=== PATIENT | male | born 1965 | race Caucasian/White ===

== ENCOUNTER 2022-07-12 23:47 | Emergency (ER) | payer OTHER, SELFPAY ==
[2022-07-12 23:48] VITALS: BP 170/94; PULSE 122; RESP 19; TEMP 36.2; O2SAT 96; BMI 33.5
[2022-07-13] VITALS (9 sets, daily range): BP systolic 134–143; BP diastolic 74–105; PULSE 78–99; RESP 14–18; TEMP 36.4–36.7; O2SAT 94–98
--- NOTE | 2022-07-13 00:05 | EKG12_ITS ---
Test Reason : MEDICAL CLEARANCE Blood Pressure : / mmHG Vent. Rate : 097 BPM Atrial Rate : 097 BPM P-R Int : 158 ms QRS Dur : 086 ms QT Int : 352 ms P-R-T Axes : 064 024 037 degrees QTc Int : 447 ms Normal sinus rhythm Nonspecific ST abnormality Abnormal ECG Confirmed by RICK TODD, ANJALI ([id number]), supervising editor news reel DORA BURR ([id number]) on 07/16/2022 10:57:36 AM Referred By: Confirmed By:IAN CABRERA MD
--- NOTE | 2022-07-13 00:06 | EDS_ITS ---
HPI HPI - Psych History of Present Illness Chief Complaint: Suicidal Informant: patient and police/health program specialist Narrative Narrative: History is obtained from the patient. I also obtained important and necessary history from police officers who are familiar with this patient's events [facility] and brought him in [facility]. Patient states that his is not talking to him. She went down to [place] to visit her sister about 5 days ago. She will not talk to him on the phone. His son evidently said that he has been depressed and on the couch for 5 days. He felt he needed to get help. Patient states he has not eaten a lot in 5 days but is still able to eat and drink. His sleep has been poor. He has been anxious and depressed. He had thoughts of driving to [place] where his son is in his sophomore year. He was going to put a gun to his own head and shoot himself at [place]. His brother evidently convinced him to come back. The patient had driven from here to about the [facility] border. When the patient got back, the police did turn the lights on and ended up apprehending him. Patient has never had thoughts like this before. He has never had a psychiatric admission. He is on medicines for depression and has been on them for about 2 years. He is taking his medicines as prescribed and not taking extra or missing. Necessary independent history obtained from police officers. They verified the above story. They also state that the patient was threatening to shoot himself in the head. They state that he also asked them to shoot him. It took some time to talk him out and talk him down and they were very concerned that this patient might go through with his suicidal statements. The patient evidently was in possession of a loaded firearm in his vehicle. Patient has not had any physical complaints recently such as headaches, fevers chills nausea vomiting or trouble breathing. He does not feel ill. Although his heart rate is up. He has no chest pain or palpitations. No rashes. He does have a history of high blood pressure. [facility] Medical History Anxiety Depression Hypertension Home Medications lisinopril 10 mg tablet 20 mg PO DAILY 07/09/15 [History Last Taken 07/09/15] chlorthalidone 50 mg tablet 25 mg PO DAILY 05/26/16 [History Last Taken Unknown] hydrocodone-acetaminophen 5-325mg 5mg-325mg 1 - 2 tab PO Q4H PRN PRN Pain ##20 05/26/16 [Rx Last Taken Unknown] lorazepam 1 mg tablet 1 mg PO TID PRN Anxiety 05/26/16 [History Last Taken 05/26/16] metoprolol succinate 50 mg tablet,extended release 24 hr 50 mg PO DAILY 05/26/16 [History Last Taken Unknown] sertraline 100 mg tablet 100 mg PO BID 05/26/16 [History Last Taken Unknown] Allergy/AdvReac Type Severity Reaction Status Date / Time No Known Allergies Allergy Verified 05/26/16 03:10 Surgical History History of appendectomy Social History Smoking Status: Never smoker EXAM Physical Exam Narrative Exam Narrative: Patient is awake and alert. He is cooperative with me. He does openly tell me the story. He is not at all threatening. He does allow exam. He does look internally stimulated. He looks anxious. He has trouble sitting still. He has to keep moving his legs back and forth. He admits to thinking of putting a gun to his head and pulling the trigger. But he then states he wants to go to work in the morning because he just started a new job on the second of this month. I think this likely has added further stress to his life. I see no sign of head trauma. Mucous membranes are moist. No JVD. His heart is regular with a rate about 100 when I listened. No murmur gallop or rub. Abdomen is soft and nontender. I see no rashes. Patient does appear little bit internally stimulated and anxious at this time. Eye contact is moderate. But he does not seem at all confused. No acute psychosis. No indication of hallucinations. He is cooperative. Const Vital Signs: 07/12/22 23:48 07/13/22 00:48 Temperature 97.2 F L Temperature Source Temporal Pulse Rate 122 H Respiratory Rate 19 H 15 Blood Pressure 170/94 H Blood Pressure Mean 119 Pulse Ox 96 Oxygen Delivery Method Room Air MDM MDM MDM Narrative Medical decision making narrative: Patient CBC shows normal white count hemoglobin and platelets. Electrolytes show some mildly low potassium at 3.1. I will write for some oral potassium but this should correct with diet. Glucose was minimally up at 113. Alcohol was elevated to 47. Salicylates and Tylenol were negative. Talk screen was negative. At this point, patient has refused his EKG. We will attempt to get this but I think his heart rate was likely up due to agitation and stress. We are contacting and discussing the case with [facility]. It ends up that one of the phone calls he made to their crisis line he did admit to being suicidal. Therefore, [facility] had already pink slipped him there. We are going to discuss the case with them to see if they will accept the patient at this time or if they need further evaluation or work-up. At this point, I believe the patient is medically cleared for psychiatric evaluation and admission. I think he would benefit from and does need admission. Lab Data Attestation: I reviewed the patient's lab results. Labs: Laboratory Results - last 24 hr 07/13/22 07/13/22 07/13/22 00:15 00:15 00:15 WBC 7.3 RBC 4.49 L Hgb 13.3 Hct 38.2 L MCV 85.1 MCH 29.6 MCHC 34.8 RDW Std Deviation 43.6 RDW Coeff of Kanu 14.1 Plt Count 326 MPV 8.7 Immature Gran % (Auto) 0.400 Neut % (Auto) 53.9 Lymph % (Auto) 35.6 [place] % (Auto) 5.2 Eos % (Auto) 3.9 Baso % (Auto) 1.0 Absolute Neuts (auto) 3.9 Absolute Lymphs (auto) 2.59 Nucleated RBC % 0 Sodium 140 Potassium 3.1 L Chloride 103 Carbon Dioxide 24.0 Anion Gap 13 BUN 24 H Creatinine 1.21 Estim Creat Clear Calc 65.17 Est GFR (MDRD) Af Amer 79 Est GFR (MDRD) Non-Af 66 BUN/Creatinine Ratio 19.8 Glucose 113 H Calcium 9.3 Salicylates Urine Opiates Screen Urine Methadone Screen Acetaminophen Ur Barbiturates Screen Ur Phencyclidine Scrn Ur Amphetamines Screen MDMA (Ecstasy) Screen U Benzodiazepines Scrn Urine Cocaine Screen U Cannabinoids Screen Ur Drug Screen Comment Ethyl Alcohol 247.0 07/13/22 07/13/22 00:15 00:20 WBC RBC Hgb Hct MCV MCH MCHC RDW Std Deviation RDW Coeff of Kanu Plt Count MPV Immature Gran % (Auto) Neut % (Auto) Lymph % (Auto) Licking % (Auto) Eos % (Auto) Baso % (Auto) Absolute Neuts (auto) Absolute Lymphs (auto) Nucleated RBC % Sodium Potassium Chloride Carbon Dioxide Anion Gap BUN Creatinine Estim Creat Clear Calc Est GFR (MDRD) Af Amer Est GFR (MDRD) Non-Af BUN/Creatinine Ratio Glucose Calcium Salicylates < 1.7 L Urine Opiates Screen NEGATIVE Urine Methadone Screen NEGATIVE Acetaminophen < 2.0 L Ur Barbiturates Screen NEGATIVE Ur Phencyclidine Scrn NEGATIVE Ur Amphetamines Screen NEGATIVE MDMA (Ecstasy) Screen NEGATIVE U Benzodiazepines Scrn NEGATIVE Urine Cocaine Screen NEGATIVE U Cannabinoids Screen NEGATIVE Ur Drug Screen Comment Ethyl Alcohol Discharge Plan Triage Chief Complaint: Suicidal ED Provider: Kevin Tuttle Dx/Rx/DC Orders Clinical Impression: Suicidal ideation, Alcohol intoxication, Acute hypokalemia Prescriptions: No Action lisinopril 10 MG tablet 20 mg PO DAILY Label Comments: metoprolol succinate 50 MG tablet 50 mg PO DAILY sertraline 100 MG tablet 100 mg PO BID chlorthalidone 50 MG tablet 25 mg PO DAILY lorazepam 1 MG tablet 1 mg PO TID PRN (Reason: Anxiety) hydrocodone-acetaminophen 1 TABLET tablet 1 - 2 tab PO Q4H PRN PRN (Reason: Pain) Qty: 20 0RF Primary Care Provider: Care Physician,No Primary Referrals: [facility] Doctor,Out of [Non-Staff] - Disposition Disposition: Psychiatric Hospital or Unit
[2022-07-13 00:25] LABS: Absolute Lymphocyte Count 2.59 X10^3/uL (0.83-4.51); Absolute Neutrophil Count 3.9 X10^3/uL (2.0-7.7); Basophil# 0.07 X10^3/uL; Eosinophil# 0.28 X10^3/uL; Eosinophils% 3.9 % (0-5); Hematocrit 38.2 % (40-54); Hemoglobin 13.3 g/dL (13.0-16.5); Lymphocyte # 2.59 X10^3/ul (0.83-4.51); Lymphocyte % 35.6 % (19-41); Mean Corp Hgb Conc 34.8 g/dL (32-36); Mean Corpuscular Hgb 29.6 pg (27.0-32.0); Mean Corpuscular Volume 85.1 fL (80-94); Mean Platelet Vol. 8.7 fl (6.2-12.0); Monocyte# 0.38 X10^3/uL; Monocyte% 5.2 % (0-10); NRBC Flagged by Analyzer 0 % (0-5); Neutrophil # 3.92 X10^3/uL (2.7-7.7); Neutrophil % 53.9 % (47-70); Platelet Count 326 K/mm3 (150-450); RBC Distribution Width CV 14.1 % (11.6-14.6); RBC Distribution Width SD 43.6 fl (35.1-43.9); Red Blood Count 4.49 M/mm3 (4.6-6.2); White Blood Count 7.3 K/mm3 (4.4-11.0)
[2022-07-13 00:40] LABS: Anion Gap 13 (5-15); BUN 24 mg/dL (7-18); BUN/Creat Ratio 19.8 RATIO (10-20); Calcium,Total 9.3 mg/dL (8.5-10.1); Chloride 103 mmol/L (98-107); Creatinine, Serum 1.21 mg/dL (0.70-1.30); EST Glomerular Filtration Rate 66 mL/min (>60); Est Glom Filt Rate - Afr Amer 79 mL/min (>60); Estimated Creatinine Clearance 65.17 ml/min; Glucose 113 mg/dL (74-106); Potassium 3.1 mmol/L (3.5-5.1); Sodium Level 140 mmol/L (136-145)
[2022-07-13 00:52] LABS: Amphetamine Urine VISTA NEGATIVE (<1000 ng/mL); Barbiturate Urine VISTA NEGATIVE (< 200 ng/mL); Benzodiazepine Urine VISTA NEGATIVE (< 200 ng/mL); Cocaine Urine VISTA NEGATIVE (< 300 ng/mL); Ecstacy Urine VISTA NEGATIVE (< 500 ng/mL); Methadone Urine VISTA NEGATIVE (< 300 ng/mL); PCP Urine VISTA NEGATIVE (< 25 ng/mL); THC Urine VISTA NEGATIVE (< 50 ng/mL); Vista UDS pH Range 5
[2022-07-13 01:06] LABS: Acetaminophen (Tylenol) Level < 2.0 ug/mL (10.0-30.0); Salicylate < 1.7 mg/dL (2.8-20.0)
--- NOTE | 2022-07-13 01:32 | ED.RN ---
[facility] CALLED FOR TRANSFER CHART FAXED TO THEM AT THIS TIME
[2022-07-13] MEDS: Gabapentin 300 MG Capsule 600 MG PO ×4 (02:29→23:09)
[2022-07-13] MEDS: Potassium Chloride Oral Tablet 20 MEQ 40 MEQ PO (02:29)
--- NOTE | 2022-07-13 09:10 | ED.RN ---
[facility]ED [facility], THEY SAID THEY ARE WAITING FOR US TO FAX A COVID PRC, EKG, AND BLOOD ALCOHOL RESULT TO [phone], THE NURSE ON THIS CASE IS JU
[2022-07-13] MEDS: Chlorthalidone 50 MG Tablet 25 MG PO (09:16)
[2022-07-13] MEDS: Lisinopril 20 MG Tablet PO (09:16)
[2022-07-13] MEDS: Levothyroxine 25 MCG TABLET PO (09:16)
[2022-07-13 09:51] LABS: Alcohol, Blood (Medical)-Serum < 3.0 mg/dL
--- NOTE | 2022-07-13 12:10 | CM.ED ---
Addendum entered by Jory Cohen 07/13/22 14:30: RANGEL called [facility] and spoke to Edwar at [phone] who stated that they had 5 beds for psych. Edwar stated that he will fax IN paperwork to the ED and then the paperwork will need to be sent to Alexa at [phone] ext [phone]. RANGEL faxed referral packet to [facility]. Jory CODY Addendum entered by Jory Cohen 07/13/22 12:12: RANGEL Note RANGEL called [facility] and after being referred to patient eligibility RANGEL was on the line for 11 minutes with no response. Jory CODY Original Note: RANGEL received voice mail message from [facility]. Brittny said that they spoke to the psychiatrist and there is currently no bed availability so they can not accept outside transfers. Jory CODY
--- NOTE | 2022-07-13 12:26 | ED.RN ---
[facility] DID NOT [facility]EPT (NOT TAKING OUTSIDE TRANSFERS), [facility] HAS A CALL TO A FACILITY IN [place].
--- NOTE | 2022-07-13 13:17 | CM.ED ---
Addendum entered by Arlene Lamb 07/13/22 17:39: RANGEL was contacted by [facility] staff, Luisa, explaining [facility] was [facility] with [facility], unit, and requested the pink slip be faxed to their location. RANGEL verified that [facility] was aware of patient's insurance, staff stated they are aware of his [facility] insurance and accept it. RANGEL contacted by Alexa with [facility] and reported [facility] were working on patient's acceptance and were communicating that with [facility] staff. RANGEL explained SW Jory was informed by [facility] they were not accepting outside patients at this time. SW explained patient was accepted to [facility]. RANGEL updated MD Perez of patient's acceptance to [facility]. RN updated. junior legal secretary to coordinate transportation. RANGEL met with patient to inform him of his acceptance to [place]. RANGEL explained [facility] staff were working on setting up transportation and would update him with a time. RANGEL provided patient with emotional support. Patient was receptive towards information and explained although he wants to go home, he will try to make the best of this experience. Plan: [facility] for crisis stabilization and medication management. CHIKIS Walker Addendum entered by Arlene Lamb 07/13/22 13:43: RANGEL contacted Alexa with [facility] to confirm they received referral for patient via fax, Alexa stated they did receive the referral and their staff would be reviewing it. CHIKIS Walker Addendum entered by Arlene Lamb 07/13/22 13:19: RANGEL updated MD Perez about [facility]. Correction: Patient was pink slipped [facility] outpatient provider [facility]. Referral sent to [facility]. Original Note: Social Work Psychiatric Assessment Reason for Consult: SI Informants: Patient, Ishan Chief Complaint: Patient reports he has been struggling with anxiety and depression over the past five days. Patient explained he has been struggling to get off the sofa and his drinking has increased in an attempt to ?get through the day?. Martial Status: Patient reports being to his for 33 years. Identified gender/ sexual orientation: male, heterosexual Living situation: Patient lives in a house with his and their son when their son is home from college. ?? Supports/ Resources: Patient explained he is supported by his Mom, his friend Braxton and sometimes his . ?? History: Patient reports being in the [place] for 4 ? years. Education and Employment history: Patient states he graduated from [employer], earned a Master?s degree in Electrical Engineering as well as Law Degree. 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 Mental Health Treatment/ History: Patient explained he saw a counselor for a few years to help him with sobriety while he attended AA meetings. Patient stated he stopped seeing that counselor about 5 years ago Patient currently receives outpatient services through the [facility]. Patient explained he is prescribed a daily anxiety medication as well as an as needed medication. Patient also participates in an online support group through the [facility] as needed. Patient reports history of anxiety and depression. Patient reports no previous psychiatric hospitalization and no family history of mental health. ?? Triggers/ stressors: Patient reports having a ?stressful life?, explaining his jobs have always been very stressful. Patient explained his main stressor recently has been not talking to his or son. Patient states it has caused his depression and anxiety to worsen fast. ? Coping Skills: Patient reports he enjoys watching watching ?silly things on tv?, spending time with his two cats and receiving hugs from his . Abuse History: ? Emotional: Patient explained he feels like his ignoring him recently is abusive and recalls his yelling at him when she drinks alcohol. ? Physical: none reported ? Sexual: none reported ? Substance Abuse Hx: Patient explained he started drinking while in the [place] and has struggled with sobriety since. Patient reports he stopped drinking over the summer but started drinking occasionally more recently. Patient reports over the past two weeks he has been drinking about 5 drinks a day, drink of choice is strong vodka mixed with juice or soda. Risk to Self/Others: ? Suicidal: Patient reports previous suicidal thoughts as well as a plan to drive to the [employer] and end his life [place]. Patient explained he knows he would change his mind before getting there due to the time it would take to get to the mountains. Patient reported noticing an increase in negative thoughts over the past two weeks and more the past five days. Patient reports he had his gun out and was thinking about ending his life, but decided to call the [facility] for support. He was encouraged to separate his gun from the ammunition and reports he did follow through with that. Patient then stated he had another plan to drive to his son?s campus and commit suicide on campus in front of his son. Patient explained he wanted to commit suicide in nature because it would be less messy than if he were in his home. Patient explained he drove to [facility] with a loaded gun but was encouraged to turn around and go home by his brother. Patient explained his intent to commit suicide that evening on a scale from 1-10 was a 10. Patient reports no current thoughts about suicide and feels he has accepted his current situation for what it is. Patient explained ?I don?t want to kill myself anymore, I am just hurting?. ? Homicidal: denied ? Violence: denied Mental Status Exam: ? Orientation x4 ? Memory: fair ? Appearance:? appropriate ? Mood/ affect: depressed mood, tearful ? Communication Pattern: responds to questions ? Thought Process: appropriate, denied AH/VH ? General Intellectual Functioning: average Judgement: poor Insight: poor? RANGEL consulted with MD Perez to discuss current concerns regarding safety. recommended inpatient psych as [facility] due to plan for suicide. ? Assessment: Patient was brought into the ED by police due to safety concerns. Patient reports an increase in depression and anxiety over the past week with those feelings continuing to increase as he hasn?t been in contact with his or son. Patient reports an increase in alcohol intake, decrease in sleeping as well as a decrease in appetite. Patient reports a history of suicidal thoughts and a previous plan. Patient states he had a plan last night to shoot himself in front of his son at his son?s college campus. Patient is currently [facility] the [facility] and participated in a [facility] group with the [facility]. Plan: Psychiatric Hospitalization for crisis stabilization and medication management Arlene STEIN, CHIKIS
--- NOTE | 2022-07-13 14:05 | CM.ED ---
Addendum entered by Lillian Cohen 07/13/22 16:46: RANGEL called back to the [facility]. [facility] Alexa said that her colleague was working on it. RANGEL was transferred to colleague but before this policy writer could be transferred it disconnected. RANGEL called Edwar at [facility] and he said that Alexa's colleague's phone and she leaves at 3pm. RANGEL left another message on the voice mail for Alexa. RANGEL spoke to Alexa again and noted that [facility] said that they were not accepting outside hospital transfers and Alexa said that is not what they told us. Of note, in the morning this policy writer had called psych at [facility] and spoke to staff who stated that they were aware of patient but were very busy and had lots of referrals from all over. RANGEL noted that as patient needs inpatient psych and he needs to be transferred to a facility SW determined to make a referral to [facility]. RANGEL had spoken to Riya at [facility] who stated they accept and VA benefits and then this policy writer spoke to [facility] head of UR and she confirmed that under the mission act patient has 30 days of inpatient treatment at a non [facility] hospital. SW made referral to [facility]. Due to patient's acuity and the fact that the [facility] has not voiced that they can accept him nor given us any statement except that they can't accept outside transfers and do what you need to do this worker decided to proceed with referral to [facility]. This was done to facilitate patient getting the mental health treatment he needed. New pink slip completed for patient. RANGEL Lane Management Supervisor Lillian CODY Addendum entered by Lillian Cohen 07/13/22 14:33: RANGEL called Alexa at [facility] in [place] and she said they reached out to [facility]. RANGEL advised that RANGEL had received call from [facility] stating that they had no psych beds. Alexa said that they will proceed with the review. lillian CODY Original Note: Brittny from [facility] called and stated there is no psych bed availability for patient. RANGEL asked about what to do with patient in regards to placement and the [place] Act and she said do whatever you need to do. Lillian CODY
--- NOTE | 2022-07-13 15:36 | ED.RN ---
Pt. states we are ok to speak and give updates to his mother. This RN updated mother we are waiting for placement.
--- NOTE | 2022-07-13 16:34 | ED.RN ---
[id number]
--- NOTE | 2022-07-13 17:11 | ED.RN ---
Attempted to call report to [facility]. left voicemail
--- NOTE | 2022-07-13 17:19 | ED.RN ---
Report given to Libby at [facility]
== END 2022-07-14 01:06 ==
PROVIDERS: Emergency Medicine; Emergency Provider Emergency Medicine; Visit Provider Emergency Medicine
DX: R45.851 Suicidal ideations (principal); F10.129 Alcohol abuse with intoxication, unspecified; E87.6 Hypokalemia; I10 Essential (primary) hypertension; Z79.899 Other long term (current) drug therapy
CPT/HCPCS: 80048; 80307; 80329; 82077; 85025; 87635; 87811; 93005; 99285; G0480; U0003; U0005

== ENCOUNTER 2023-11-03 11:14 | Emergency (ER) | payer OTHER, SELFPAY ==
[2023-11-03 11:15] VITALS: PULSE 89; RESP 14; TEMP 36.6; O2SAT 95
[2023-11-03 11:19] VITALS: BP 107/77
--- NOTE | 2023-11-03 11:30 | CT_ITS ---
STUDY: CT BRAIN WITHOUT CONTRAST REASON FOR EXAM: Male, 57 years old. Headache after a fall RADIATION DOSAGE (If Supplied By Facility): CTDIvol = ( 44.99 ) mGy, DLP = ( 880.47 ) mGycm TECHNIQUE: Transaxial CT imaging of the brain was performed without administration of intravenous contrast material. Individualized dose optimization techniques were used for this CT. COMPARISON: No relevant priors. FINDINGS: Normal soft tissue structures. Normal calvarium. Normal size ventricles and extra-axial spaces for the patient''s age. Normal white matter tracts of the cerebral hemispheres. Normal basal ganglia and thalami. Normal brainstem. Normal cerebellum. There is no intracranial hemorrhage. There are no findings of an acute ischemic infarction. Normal visualized paranasal sinuses. CT/Brain/Head without Contrast IMPRESSION: No acute findings, no hemorrhage or midline shift or mass effect, no skull fracture or scalp hematoma Electronically Signed: Anjel Farley MD at 12:07 EDT ,
--- NOTE | 2023-11-03 11:30 | CT_ITS ---
STUDY: CT CERVICAL SPINE WITHOUT CONTRAST REASON FOR EXAM: Male, 57 years old. Headache and neck pain after a fall RADIATION DOSAGE (If Supplied By Facility): CTDIvol = ( 23.78 ) mGy, DLP = ( 592.39 ) mGycm TECHNIQUE: High resolution transaxial imaging was performed without contrast material. Sagittal and coronal images were reconstructed. Individualized dose optimization techniques were used for this CT. COMPARISON: None FINDINGS: Normal craniovertebral junction. Normal anterior atlantoaxial articulation. Normal odontoid process. Normal cervical lordosis. Normal vertebral bodies and posterior osseous elements. C2-3: Normal endplates. Normal disc height and morphology. Normal central canal and intervertebral neuroforamina. C3-4: Normal endplates. Normal disc height and morphology. Normal central canal and intervertebral neuroforamina. C4-5: Normal endplates. Normal disc height and morphology. Normal central canal and intervertebral neuroforamina. C5-6: Normal endplates. Mild disc space narrowing.. Normal central canal and intervertebral neuroforamina. C6-7: Normal endplates. Mild disc space narrowing.. Normal central canal and intervertebral neuroforamina. C7-T1: Normal endplates. Mild disc space narrowing.. Normal central canal and intervertebral neuroforamina. Normal visualized soft tissue structures. CT/Spine Cervical without Contras IMPRESSION: Mild degenerative changes in the lower cervical spine, no demonstrated fracture or suspicious osseous lesion Electronically Signed: Anjel Farley MD at 12:09 EDT ,
--- NOTE | 2023-11-03 11:35 | EDS_ITS ---
HPI <CORA Nance - Last Filed: 11/03/23 13:20> History of Present Illness Chief Complaint: Head Injury Narrative Narrative: Patient presenting today due to head injury that occurred this morning. He reports that he drank about a third bottle of vodka and was at [facility] when he lost his balance and fell and hit the back of his head on an unknown object. There was no LOC, he is not on any blood thinners. He reports pain to the back of his head. He has a laceration to the back of his head, he reports that his tetanus is up-to-date. He denies any other injury. PFSH <CORA Nance - Last Filed: 11/03/23 13:20> [facility] Medical History Anxiety Depression Hypertension Home Medications lisinopril 10 mg tablet 20 mg PO DAILY 07/09/15 [History Last Taken 07/09/15] chlorthalidone 50 mg tablet 25 mg PO DAILY 05/26/16 [History Last Taken Unknown] hydrocodone-acetaminophen 5-325mg 5mg-325mg 1 - 2 tab PO Q4H PRN PRN Pain ##20 05/26/16 [Rx Last Taken Unknown] lorazepam 1 mg tablet 1 mg PO TID PRN Anxiety 05/26/16 [History Last Taken 05/26/16] metoprolol succinate 50 mg tablet,extended release 24 hr 50 mg PO DAILY 05/26/16 [History Last Taken Unknown] sertraline 100 mg tablet 100 mg PO BID 05/26/16 [History Last Taken Unknown] gabapentin 600 mg tablet 600 mg PO TID 07/13/22 [History Last Taken Unknown] levothyroxine 25 mcg tablet 25 mcg PO DAILY 07/13/22 [History Last Taken Unknown] Allergy/AdvReac Type Severity Reaction Status Date / Time No Known Allergies Allergy Verified 11/03/23 11:19 Surgical History History of appendectomy Social History Smoking Status: Never smoker ROS <CORA Nance - Last Filed: 11/03/23 13:20> ROS ED Constitutional Constitutional ED: Denies chills or fever(s) Eyes Eyes: Denies change in vision Cardiovascular Cardiovascular: Denies chest pain Respiratory/Chest Respiratory/Chest: Denies cough or dyspnea Gastrointestinal Gastrointestinal: Denies abdominal pain, nausea or vomiting Musculoskeletal Musculoskeletal: Denies arthralgias, back pain or neck pain Integumentary Reports laceration Neurologic Neurologic: Reports headache(s); Denies weakness Psychiatric Psychiatric: Reports anxiety and depression; Denies suicidal ideation or suicidal thoughts EXAM <CORA Nance - Last Filed: 11/03/23 13:20> Physical Exam Const Vital Signs: 11/03/23 11:15 11/03/23 11:19 11/03/23 11:18 Temperature 98 F Temperature Source Temporal Pulse Rate 89 Respiratory Rate 14 Respiratory Effort Normal Respiratory Depth Normal Respiratory Pattern Normal Blood Pressure 107/77 Blood Pressure Mean 87 Pulse Ox 95 Oxygen Delivery Method Room Air Room Air 11/03/23 13:16 Temperature 97.2 F L Temperature Source Pulse Rate 81 Respiratory Rate 18 Respiratory Effort Respiratory Depth Respiratory Pattern Blood Pressure 134/81 H Blood Pressure Mean 98 Pulse Ox 98 Oxygen Delivery Method Positive well nourished, well developed and no apparent distress General Appearance ED: well developed HEENT Reports normocephalic and head/scalp atraumatic HEENT Narrative: 3 cm full-thickness linear laceration to the posterior scalp Mouth ED: Yes moist mucous membranes normal Eyes PERRL and EOMs intact bilaterally Neck full ROM and supple Chest Wall inspection of chest normal Resp normal respiratory effort and clear to auscultation bilaterally Cardio regular rate and regular rhythm GI soft to palpation, non-tender, non-distended and no masses Back/Spine normal ROM and normal to inspection Extremity normal to inspection and full ROM Neuro oriented x3, CN's II-XII intact bilaterally, moves all extremities, no focal motor deficits and no sensory deficits noted Sensorium / Orientation: awake and alert Psych mental status grossly normal and thought process normal Skin no rashes or lesions noted Skin Narrative: 3 cm linear scalp laceration <Dr. Aman Cevallos DO - Last Filed: 11/03/23 14:25> Physical Exam Const Vital Signs: 11/03/23 11:15 11/03/23 11:19 11/03/23 11:18 Temperature 98 F Temperature Source Temporal Pulse Rate 89 Respiratory Rate 14 Respiratory Effort Normal Respiratory Depth Normal Respiratory Pattern Normal Blood Pressure 107/77 Blood Pressure Mean 87 Pulse Ox 95 Oxygen Delivery Method Room Air Room Air 11/03/23 13:16 Temperature 97.2 F L Temperature Source Pulse Rate 81 Respiratory Rate 18 Respiratory Effort Respiratory Depth Respiratory Pattern Blood Pressure 134/81 H Blood Pressure Mean 98 Pulse Ox 98 Oxygen Delivery Method PROC <CORA Nance - Last Filed: 11/03/23 13:20> Procedures Lacerations Laceration: Length: 1.18 in Depth: Sub Q Shape: Linear Prep: Chlorhexadine Laceration repair: Irrigated and Lidocaine with epi Number of Sutures/[place]: 5 Comment: Cleaned with normal saline and chlorhexidine, stapled with good approximation of wound. MDM <CORA Nance - Last Filed: 11/03/23 13:20> [facility] Narrative Medical decision making narrative: Patient presenting due to a head injury that occurred this morning. Patient is intoxicated, he is here with his mother. CT scan of the head and neck will be obtained to rule out intracranial bleed and cervical fracture. Laceration repaired he tolerated procedure well. Wound care instructions discussed. He is to have elias out in 10 to 14 days. He reports that his tetanus is up-to-date, I did offer tetanus here just to be sure but he declines. Head and neck CT negative for any acute findings. He was observed for period of time and is able to ambulate without difficulty, he has a sober ride home and will be discharged home in stable condition. Radiography Diagnostic Testing: Clinical Impression(s) from Imaging Studies Brain CT 11/03/23 11:30 IMPRESSION: No acute findings, no hemorrhage or midline shift or mass effect, no skull fracture or scalp hematoma Electronically Signed: Anjel Farley MD at 12:07 EDT , Cervical Spine CT 11/03/23 11:30 IMPRESSION: Mild degenerative changes in the lower cervical spine, no demonstrated fracture or suspicious osseous lesion Electronically Signed: Anjel Farley MD at 12:09 EDT , <Dr. Aman Cevallos, DO - Last Filed: 11/03/23 14:25> [facility] MDM Narrative Medical decision making narrative: Patient presenting due to a head injury that occurred this morning. Patient is intoxicated, he is here with his mother. CT scan of the head and neck will be obtained to rule out intracranial bleed and cervical fracture. Laceration repaired he tolerated procedure well. Wound care instructions discussed. He is to have elias out in 5?7. He reports that his tetanus is up-to-date, I did offer tetanus here just to be sure but he declines. Head and neck CT negative for any acute findings. He was observed for period of time and is able to ambulate without difficulty, he has a sober ride home and will be discharged home in stable condition. This patient was seen with a PA/BUDGET ANALYST Individually assessed they patient including history and physical. I have reviewed everything on the chart that is available and agree with the documentation provided by the PA/BUDGET ANALYST including discussion about the assessment, treatment plan, discussion, and return precautions. Patient presenting intoxicated had a mechanical fall at [facility]. He is a laceration to the scalp. CT brain and cervical spine were negative. Patient is sure that his tetanus is up-to-date. He was offered alcohol detox but he declines. He does acknowledge that he has a drinking problem but he is alert and awake and has capacity to make the decision. Elias placed by PA. Please see procedure note. Wound care and return precautions discussed. Radiography Diagnostic Testing: Clinical Impression(s) from Imaging Studies Brain CT 11/03/23 11:30 IMPRESSION: No acute findings, no hemorrhage or midline shift or mass effect, no skull fracture or scalp hematoma Electronically Signed: Anjel Farley MD at 12:07 EDT , Cervical Spine CT 11/03/23 11:30 IMPRESSION: Mild degenerative changes in the lower cervical spine, no demonstrated fracture or suspicious osseous lesion Electronically Signed: Anjel Farley MD at 12:09 EDT , Discharge Plan Triage Chief Complaint: Head Injury ED Midlevel Provider: [place] [place] ED Provider: Aman Cevallos Dx/Rx/DC Orders Clinical Impression: Alcohol intoxication, Head injury, Laceration of scalp Instructions: ED Head Injury (Adult), ED Laceration Scalp Stitches or [place] Prescriptions: No Action lisinopril 10 MG tablet 20 mg PO DAILY Patient Comments: metoprolol succinate 50 MG tablet 50 mg PO DAILY sertraline 100 MG tablet 100 mg PO BID chlorthalidone 50 MG tablet 25 mg PO DAILY lorazepam 1 MG tablet 1 mg PO TID PRN (Reason: Anxiety) hydrocodone-acetaminophen 1 TABLET tablet 1 - 2 tab PO Q4H PRN PRN (Reason: Pain) Qty: 20 0RF gabapentin 600 mg tablet 600 mg PO TID Patient Comments: TAKE 1 TABLET BY MOUTH THREE TIMES DAILY levothyroxine 25 mcg tablet 25 mcg PO DAILY Patient Comments: TAKE 1 TABLET BY MOUTH ONCE DAILY [facility] Care Provider: [facility] Referrals: Care Physician,No Primary [Non-Staff] - Activity Restrictions/Additional Instructions: Please have elias removed in 10 to 14 days by your PCP. Return for any worsening of your symptoms. Disposition Disposition: Home, Self Care Discharge Date/Time: 11/03/23 13:17
[2023-11-03 13:16] VITALS: BP 134/81; PULSE 81; RESP 18; TEMP 36.2; O2SAT 98
== END 2023-11-03 13:17 | disposition home or self-care (01) ==
PROVIDERS: Emergency Provider Student in an Organized Health Care Education/Training Program; Visit Provider Student in an Organized Health Care Education/Training Program
DX: F10.129 Alcohol abuse with intoxication, unspecified (principal); S01.01XA Laceration without foreign body of scalp, initial encounter; W19.XXXA Unspecified fall, initial encounter
CPT/HCPCS: 70450; 72125; 99282

== ENCOUNTER 2023-11-12 15:49 | Inpatient (IN) | payer OTHER, SELFPAY ==
[2023-11-12] VITALS (8 sets, daily range): BP systolic 107–164; BP diastolic 66–84; PULSE 54–75; RESP 14–18; TEMP 36.4–37.1; O2SAT 94–100; BMI 31.2; BMI 30.7
--- NOTE | 2023-11-12 16:01 | EX.ED.DYSGE1 ---
HPI History of Present Illness Chief Complaint: Seizure Informant: patient, family and friend Onset/Context/Timing Onset: Today Context: Sudden Onset Timing: Intermittent and Lasts (Approximately 10 minutes) Quality: Tonic-clonic Location: Generalized Worsened by: Nothing Relieved by: Nothing Narrative Narrative: Patient presents with a seizure that occurred today. Patient does not remember any events of the seizure. Patient was with a friend and his mother who witnessed the seizure. He stated that it was generalized shaking all over. They state that it lasted approximately 10 minutes. Patient denies any incontinence of urine or stool. Patient denies biting his tongue, lip, or cheek. Patient states he had a similar seizure approximately 9 days ago. Patient was not started on any antiepileptics at that time. [facility] Medical History Anxiety Depression Hypertension Home Medications lisinopril 10 mg tablet 20 mg PO DAILY 07/09/15 [History Last Taken 07/09/15] chlorthalidone 50 mg tablet 25 mg PO DAILY 05/26/16 [History Last Taken Unknown] hydrocodone-acetaminophen 5-325mg 5mg-325mg 1 - 2 tab PO Q4H PRN PRN Pain ##20 05/26/16 [Rx Last Taken Unknown] lorazepam 1 mg tablet 1 mg PO TID PRN Anxiety 05/26/16 [History Last Taken 05/26/16] metoprolol succinate 50 mg tablet,extended release 24 hr 50 mg PO DAILY 05/26/16 [History Last Taken Unknown] sertraline 100 mg tablet 100 mg PO BID 05/26/16 [History Last Taken Unknown] gabapentin 600 mg tablet 600 mg PO TID 07/13/22 [History Last Taken Unknown] levothyroxine 25 mcg tablet 25 mcg PO DAILY 07/13/22 [History Last Taken Unknown] Allergy/AdvReac Type Severity Reaction Status Date / Time No Known Allergies Allergy Verified 11/03/23 11:19 Surgical History History of appendectomy Social History Smoking Status: Never smoker ROS ROS ED Constitutional Constitutional ED: Denies chills or fever(s) Eyes Eyes: Denies blurry vision or change in vision ENT ENT ED: Denies rhinorrhea or sore throat Cardiovascular Cardiovascular: Denies chest pain or palpitations Respiratory/Chest Respiratory/Chest: Denies cough or dyspnea Gastrointestinal Gastrointestinal: Denies nausea or vomiting Genitourinary Genitourinary ED: Denies dysuria or hematuria Musculoskeletal Musculoskeletal: Denies back pain or neck pain Integumentary Denies abscess or rash Neurologic Neurologic: Denies headache(s) or weakness Allergic/Immunologic Allergic/Immunologic ED: Denies mouth swelling or urticaria EXAM Physical Exam Const Vital Signs: 11/12/23 15:53 11/12/23 16:38 11/12/23 18:03 Temperature 98.8 F Temperature Source Oral Pulse Rate 75 72 69 Respiratory Rate 16 16 16 Blood Pressure 124/84 H 107/66 164/75 H Blood Pressure Mean 97 79 104 Pulse Ox 98 94 99 Oxygen Delivery Method Room Air Room Air Non-Rebreather Oxygen Flow Rate (L/min) 11/12/23 18:39 11/12/23 20:00 Temperature 97.7 F L Temperature Source Temporal Pulse Rate 68 54 L Respiratory Rate 18 14 Blood Pressure 121/82 H 111/71 Blood Pressure Mean 95 84 Pulse Ox 100 97 Oxygen Delivery Method Nasal Cannula Room Air Oxygen Flow Rate (L/min) 2 Positive well nourished and well developed General Appearance ED: well developed and NAD HEENT Reports moist mucous membranes HEENT Narrative: There is a healing laceration over the right parietal/occipital scalp. There are [address] There is no surrounding erythema. There is no tenderness. There is no warmth. There is no discharge or drainage. There is no sign of any infection. Oral mucosa is pink and moist. There is no tongue laceration, lip laceration, or cheek laceration. There is no bleeding noted. Teeth are intact. Neck supple and no JVD Resp normal respiratory effort and clear to auscultation bilaterally Cardio regular rate and regular rhythm GI non-tender and non-distended Palpation: soft Extremity normal to inspection General Extremety ED: Negative for edema or tenderness General Extremity: Negative for edema Neuro oriented x3, CN's II-XII intact bilaterally and no sensory deficits noted Sensorium / Orientation: alert Motor Exam: strength 5/5 throughout MDM MDM MDM Narrative Medical decision making narrative: Differential diagnosis includes seizure, intracranial bleeding, intracranial mass, electrolyte abnormality, alcohol withdrawal seizure, and epilepsy. CT scan of the brain will be obtained to assess for intracranial bleeding and mass. CBC will be obtained to assess for leukocytosis and anemia. Comprehensive metabolic profile will be obtained to assess for hepatic function, renal function, and electrolyte abnormality. Urinalysis will be obtained to assess for urinary tract infection and hematuria. Serum alcohol level will be obtained to assess for alcohol intoxication. PT was INR and PTT will be obtained to assess for coagulopathy. Lab Data Attestation: I reviewed the patient's lab results. Lab results narrative: CBC was reviewed. There is a mild anemia with a hemoglobin of 12.0 and hematocrit 35.2. Platelets were normal. PT was INR and PTT were reviewed and were within normal limits. Comprehensive metabolic profile was reviewed. Potassium was low at 2.1. Creatinine was slightly elevated at 1.37. AST was slightly elevated at 183 and ALT was 62. Alkaline phosphatase was 191. Total bilirubin was normal at 0.7. Lipase was reviewed and was normal at 44. Urinalysis was reviewed. There is no evidence of urinary tract infection or hematuria. Serum alcohol level was reviewed and was less than 3. Labs: Laboratory Results - last 24 hr 11/12/23 11/12/23 17:00 17:50 WBC 9.7 RBC 4.34 L Hgb 12.0 L Hct 35.2 L MCV 81.1 MCH 27.6 MCHC 34.1 RDW Std Deviation 40.9 RDW Coeff of Kanu 14.0 Plt Count 209 MPV 9.3 Immature Gran % (Auto) 0.300 Neut % (Auto) 79.2 H Lymph % (Auto) 14.4 L [place] % (Auto) 5.5 Eos % (Auto) 0.2 Baso % (Auto) 0.4 Absolute Neuts (auto) 7.7 Absolute Lymphs (auto) 1.39 Nucleated RBC % 0 PT 14.2 INR 1.1 APTT 27.0 Sodium 137 Potassium 2.1 L* Chloride 101 Carbon Dioxide 27.0 Anion Gap 9 BUN 14 Creatinine 1.37 H Estim Creat Clear Calc 65.11 Est GFR (MDRD) Af Amer 68 Est GFR (MDRD) Non-Af 57 L BUN/Creatinine Ratio 10.2 Glucose 170 H Calcium 8.4 L Total Bilirubin 0.70 AST 183 H ALT 62 H Alkaline Phosphatase 191 H Total Protein 6.3 L Albumin 3.1 L Globulin 3.2 Albumin/Globulin Ratio 1.0 Lipase 44 Urine Color Yellow Urine Clarity Clear Urine pH 6.0 Ur Specific [place]rick 1.010 Urine Protein 30 H Urine Glucose (UA) Normal Urine Ketones Negative Urine Occult Blood 150 H Urine Nitrite Negative Urine Bilirubin Negative Urine Urobilinogen Normal Ur Leukocyte Esterase 25 H Urine RBC 5-10 SEEN Urine WBC 0 SEEN Ur Squamous Epith Cells 0 SEEN Urine Bacteria 0 SEEN Urine Mucus 0 SEEN Ethyl Alcohol < 3.0 Radiography Diagnostic Testing: Clinical Impression(s) from Imaging Studies Brain CT 11/12/23 16:41 IMPRESSION: Normal unenhanced CT scan of the brain. Electronically Signed: Buddy Ibarra MD at 17:41 EDT , CT scan of the brain was obtained. There is no acute intracranial abnormality. This was interpreted by the radiologist and was also independently reviewed by myself. Treatment and Re-Evaluation :: 5 pam were removed from the patient's scalp laceration without difficulty. Patient was given IV fluids. Seizure precautions were maintained. Patient did have another seizure here in the emergency department. It was a generalized tonic-clonic seizure. Because of this, patient was started on Keppra. Patient was given oral and IV potassium for his hypokalemia. Case was discussed with the hospitalist. He recommended obtaining a urine tox screen. This was ordered. He will admit the patient to PCU. Patient understands and is agreeable with the plan. All questions were answered. Procedures Other Procedures Procedure(s): 5 pam were removed from the scalp laceration. Patient tolerated the procedure well. Discharge Plan Triage Chief Complaint: Seizure ED Provider: Elder Connell Dx/Rx/DC Orders Clinical Impression: New onset seizure, Hypokalemia Prescriptions: No Action lisinopril 10 MG tablet 20 mg PO DAILY Patient Comments: metoprolol succinate 50 MG tablet 50 mg PO DAILY sertraline 100 MG tablet 100 mg PO BID chlorthalidone 50 MG tablet 25 mg PO DAILY lorazepam 1 MG tablet 1 mg PO TID PRN (Reason: Anxiety) hydrocodone-acetaminophen 1 TABLET tablet 1 - 2 tab PO Q4H PRN PRN (Reason: Pain) Qty: 20 0RF gabapentin 600 mg tablet 600 mg PO TID Patient Comments: TAKE 1 TABLET BY MOUTH THREE TIMES DAILY levothyroxine 25 mcg tablet 25 mcg PO DAILY Patient Comments: TAKE 1 TABLET BY MOUTH ONCE DAILY [facility] [Primary Care Provider] - Disposition Disposition: Acute Care Hospital [facility]
--- NOTE | 2023-11-12 16:41 | CT_ITS ---
STUDY: CT BRAIN WITHOUT CONTRAST REASON FOR EXAM: Male, 57 years old. Seizure RADIATION DOSAGE (If Supplied By Facility): CTDIvol = ( 44.99 ) mGy, DLP = ( 829.85 ) mGycm TECHNIQUE: Transaxial CT imaging of the brain was performed without administration of intravenous contrast material. Individualized dose optimization techniques were used for this CT. COMPARISON: 11/03/2023 FINDINGS: Normal soft tissue structures. Normal calvarium. Normal size ventricles and extra-axial spaces for the patient''s age. Normal white matter tracts of the cerebral hemispheres. Normal basal ganglia and thalami. Normal brainstem. Normal cerebellum. There is no intracranial hemorrhage. There are no findings of an acute ischemic infarction. Normal visualized paranasal sinuses. CT/Brain/Head without Contrast IMPRESSION: Normal unenhanced CT scan of the brain. Electronically Signed: Buddy Ibarra MD at 17:41 EDT ,
[2023-11-12] MEDS: 0.9% Normal Saline (1000mL) 1,000 ML 1000 ML IV (17:10)
[2023-11-12 17:14] LABS: Absolute Lymphocyte Count 1.39 X10^3/uL (0.83-4.51); Absolute Neutrophil Count 7.7 X10^3/uL (2.0-7.7); Basophil# 0.04 X10^3/uL; Basophil% 0.4 % (0-1); Eosinophil# 0.02 X10^3/uL; Eosinophils% 0.2 % (0-5); Hematocrit 35.2 % (40-54); Lymphocyte # 1.39 X10^3/ul (0.83-4.51); Lymphocyte % 14.4 % (19-41); Mean Corp Hgb Conc 34.1 g/dL (32-36); Mean Corpuscular Hgb 27.6 pg (27.0-32.0); Mean Corpuscular Volume 81.1 fL (80-94); Mean Platelet Vol. 9.3 fl (6.2-12.0); Monocyte# 0.53 X10^3/uL; Monocyte% 5.5 % (0-10); NRBC Flagged by Analyzer 0 % (0-5); Neutrophil # 7.66 X10^3/uL (2.7-7.7); Neutrophil % 79.2 % (47-70); Platelet Count 209 K/mm3 (150-450); RBC Distribution Width SD 40.9 fl (35.1-43.9); Red Blood Count 4.34 M/mm3 (4.6-6.2); White Blood Count 9.7 K/mm3 (4.4-11.0)
[2023-11-12 17:23] LABS: International Normalized Ratio 1.1; Prothrombin Time (Protime)PT. 14.2 SECONDS (11.7-14.9)
[2023-11-12 17:29] LABS: Alcohol, Blood (Medical)-Serum < 3.0 mg/dL
[2023-11-12 17:33] LABS: AST(SGOT) 183 U/L (15-37); Alanine Aminotransfer ALT/SGPT 62 U/L (16-61); Albumin, Serum 3.1 g/dL (3.2-5.0); Alkaline Phosphatase 191 U/L (45-117); Anion Gap 9 (5-15); BUN 14 mg/dL (7-18); BUN/Creat Ratio 10.2 RATIO (10-20); Calcium,Total 8.4 mg/dL (8.5-10.1); Chloride 101 mmol/L (98-107); Creatinine, Serum 1.37 mg/dL (0.70-1.30); EST Glomerular Filtration Rate 57 mL/min (>60); Est Glom Filt Rate - Afr Amer 68 mL/min (>60); Estimated Creatinine Clearance 65.11 ml/min; Globulin 3.2 g/dL (2.2-4.2); Glucose 170 mg/dL (74-106); Lipase 44 U/L (13-75); Potassium 2.1 mmol/L (3.5-5.1); Protein, Total 6.3 g/dL (6.4-8.2); Sodium Level 137 mmol/L (136-145)
[2023-11-12 17:55] LABS: Bacteria 0 SEEN /hpf (None Seen); Mucous, Urine 0 SEEN /hpf (<or=2+); Squamous Epithelial Cells - UA 0 SEEN /hpf (0-5); White Blood Cells 0 SEEN /hpf (0-5)
--- NOTE | 2023-11-12 18:00 | NURSING ---
Notified by family member of seizure activity. Upon entering room pt w/ snorous resp, lip smacking, twitching. O2 applied. KCL started. Dr. Connell at bedside for event.
[2023-11-12] MEDS: Potassium Chloride 10mEq/100mL 10 MEQ/100 ML IV.SOLN. 100 MEQ IV BOLUS ×2 (18:02→19:03)
[2023-11-12 18:06] LABS: Color, Urine Yellow (Yellow); Glucose, Dipstick Normal (Normal); Ketone-Dipstick Negative (Negative); Leukocyte Esterase-Dipstick 25 /ul (Negative); Nitrite-Dipstick Negative (Negative); Occult Blood-Urine 150 /ul (Negative); Protein-Dipstick 30 mg/dl (Negative); Urine Bilirubin Dipstick Negative (Negative); Urine Clarity Clear (Clear); Urine Urobilinogen Normal (Normal)
[2023-11-12] MEDS: levETIRAcetam IV 1,000 MG/100 ML BAG 400 MG IV (18:13)
[2023-11-12 18:19] LABS: Red Blood Cells-Urine 5-10 SEEN /hpf (0-5)
--- NOTE | 2023-11-12 21:38 | PCM.HP.STD ---
[facility] - General General Date of Admission: 11/12/23 Date of Service: 11/12/23 Chief Complaint: Tonic-clonic seizure. HPI Narrative DEREK PALACIOS, is a 57 M with a past medical history of essential hypertension, hypothyroidism, obesity; with BMI of 31.2 present on admission, chronic neuropathy of lower extremities; treated with gabapentin, history of seizure; attributed to alcohol withdrawal, depression with anxiety and chronic alcohol abuse; with patient drinking approximately 1/2 gallon of low test (20%) vodka daily since age 24 who presents to [facility] ER after witnessed tonic-clonic seizure. Mr. Palacios reports that his seizure occurred today but he does not remember any events of the seizure but he does admit his last drink was approximately 48 hours ago. His family reported to the ER that he was shaking all over and that it lasted approximately 10 minutes before resolving. There was no record of incontinence of urine or stool. Patient had no tongue lacerations, lip lacerations or buccal mucosa injury. He goes on to state that he had a similar seizure 9 days ago but was allegedly not started on any AEDs at that time with the patient have a healing laceration over the right parietal occipital scalp with [address] with no signs of infection. He denies associated fever, chills, nausea, vomiting, chest pain, shortness of breath, dysuria or headache but his family seem to indicate that he is still drinking and was not initially being completely forthright about his alcohol use. In the ER he was diagnosed with tonic-clonic seizure due to alcohol withdrawal that was empirically treated with IV Keppra complicated by laboratory evidence of critical hypokalemia of 2.1 mmol/L with an elevated AST to ALT ratio ~2:1 (AST 183 U/L and ALT 62 U/L) consistent with ongoing severe alcohol abuse precipitating recurrent alcohol withdrawal seizures with an undetectable blood alcohol concentration on admission. He was then admitted to the PCU for ongoing care for stay that is expected to be greater than 2 midnights. [facility] Medical History Anxiety Depression Hypertension Home Medications lisinopril 10 mg tablet 20 mg PO DAILY blood pressure 07/09/15 [History Last Taken 07/09/15] chlorthalidone 50 mg tablet 25 mg PO DAILY blood pressure 05/26/16 [History Last Taken Unknown] hydrocodone-acetaminophen 5-325mg 5mg-325mg 1 - 2 tab PO Q4H PRN PRN Pain ##20 05/26/16 [Rx Last Taken Unknown] lorazepam 1 mg tablet 1 mg PO TID PRN Anxiety 05/26/16 [History Last Taken 05/26/16] metoprolol succinate 50 mg tablet,extended release 24 hr 50 mg PO DAILY blood pressure 05/26/16 [History Last Taken Unknown] sertraline 100 mg tablet 100 mg PO BID mental health 05/26/16 [History Last Taken Unknown] gabapentin 600 mg tablet 600 mg PO TID neuropathy 07/13/22 [History Last Taken Unknown] levothyroxine 25 mcg tablet 25 mcg PO DAILY thyroid 07/13/22 [History Last Taken Unknown] Allergy/AdvReac Type Severity Reaction Status Date / Time No Known Allergies Allergy Verified 11/12/23 23:14 Surgical History History of appendectomy Social History Smoking Status: Never smoker ROS ROS Narrative Review of systems: General: Patient denies fever or chills. HENT: Denies headache, denies stuffy nose, denies sore throat EYES: Denies changes in vision or discharge from eyes. Resp: Denies cough, denies shortness of breath Cardiac: Denies chest pain, palpitations or heart racing. GI: Denies abdominal pain, denies changes in bowel, denies nausea or vomiting. : Denies changes in urination Extremity: Denies swelling Musculoskeletal: Feels somewhat generally weak and unwell but denies arthralgias or myalgias Neuro: Patient admits to tonic-clonic seizure as per HPI but he denies associated headache or focal neurologic weakness. Heme: Denies any bleeding or bruising Skin: Denies rashes Psychiatric: No complaints voiced related to uncontrolled depression or anxiety. Endocrine: No polyuria, polydipsia or polyphagia. The rest of the 14 point ROS was negative except for positives in HPI. Vital Signs Vital Signs Vital Signs: 11/12/23 15:53 11/12/23 16:38 11/12/23 18:03 Temperature 98.8 F Temperature Source Oral Pulse Rate 75 72 69 Respiratory Rate 16 16 16 Blood Pressure 124/84 H 107/66 164/75 H Blood Pressure Mean 97 79 104 Pulse Ox 98 94 99 Oxygen Delivery Method Room Air Room Air Non-Rebreather Oxygen Flow Rate (L/min) 11/12/23 18:39 11/12/23 20:00 Temperature 97.7 F L Temperature Source Temporal Pulse Rate 68 54 L Respiratory Rate 18 14 Blood Pressure 121/82 H 111/71 Blood Pressure Mean 95 84 Pulse Ox 100 97 Oxygen Delivery Method Nasal Cannula Room Air Oxygen Flow Rate (L/min) 2 Weight Weight: 205 lb 7.533 oz Body Mass Index (BMI) 31.2 Physical Exam Const alert, oriented x3, no apparent distress, average body habitus and healthy appearing General Appearance: cooperative HEENT normocephalic, hearing grossly normal bilaterally and moist oral mucous membranes HEENT Narrative: Patient has [address] over his right parietal occipital region with no signs of infection. Eyes PERRL and EOMs intact bilaterally Neck no lymphadenopathy and supple Resp normal respiratory effort, no retractions, no use of accessory muscles and clear to auscultation bilaterally Cardio regular rate and regular rhythm GI normal to inspection, nondistended, normoactive bowel sounds, soft to palpation, non-tender and non-distended Extremity normal to inspection, full ROM and no clubbing, cyanosis or edema Skin Skin Narrative: Patient has no evidence of jaundice, rash or abscess. Neuro oriented x3, CN's II-XII intact bilaterally, moves all extremities and no focal motor deficits Sensorium / Orientation: awake, alert, oriented to person, oriented to place and oriented to time Speech: speech normal Motor Exam: strength 5/5 throughout Psych affect normal Results Medical Records Data Attestation: I reviewed the patient's medical records Lab / Micro Data Attestation: I reviewed the patient's lab results. 11/12/23 17:00 11/12/23 17:00 Labs: Laboratory Results - last 24 hr 11/12/23 17:00: WBC 9.7, RBC 4.34 L, Hgb 12.0 L, Hct 35.2 L, MCV 81.1, MCH 27.6, MCHC 34.1, RDW Std Deviation 40.9, RDW Coeff of [place] 14.0, Plt Count 209, MPV 9.3, Immature Gran % (Auto) 0.300, Neut % (Auto) 79.2 H, Lymph % (Auto) 14.4 L, [place] % (Auto) 5.5, Eos % (Auto) 0.2, Baso % (Auto) 0.4, Absolute Neuts (auto) 7.7, Absolute Lymphs (auto) 1.39, Nucleated RBC % 0, PT 14.2, INR 1.1, APTT 27.0, Sodium 137, Potassium 2.1 L*, Chloride 101, Carbon Dioxide 27.0, Anion Gap 9, BUN 14, Creatinine 1.37 H, Estim Creat Clear Calc 65.11, Est GFR (MDRD) Af Amer 68, Est GFR (MDRD) Non-Af 57 L, BUN/Creatinine Ratio 10.2, Glucose 170 H, Calcium 8.4 L, Total Bilirubin 0.70, AST 183 H, ALT 62 H, Alkaline Phosphatase 191 H, Total Protein 6.3 L, Albumin 3.1 L, Globulin 3.2, Albumin/Globulin Ratio 1.0, Lipase 44, Ethyl Alcohol < 3.0 11/12/23 17:50: Urine Color Yellow, Urine Clarity Clear, Urine pH 6.0, Ur Specific [place] 1.010, Urine Protein 30 H, Urine Glucose (UA) Normal, Urine Ketones Negative, Urine Occult Blood 150 H, Urine Nitrite Negative, Urine Bilirubin Negative, Urine Urobilinogen Normal, Ur Leukocyte Esterase 25 H, Urine RBC 5-10 SEEN, Urine WBC 0 SEEN, Ur Squamous Epith Cells 0 SEEN, Urine Bacteria 0 SEEN, Urine Mucus 0 SEEN Imaging Radiology Impression Brain CT 11/12/23 16:41 IMPRESSION: Normal unenhanced CT scan of the brain. Electronically Signed: Buddy Ibarra MD at 17:41 EDT , Assessment & Plan Assessment/Plan (1) Tonic-clonic seizure: (2) Hypokalemia: (3) History of alcohol abuse: (4) History of seizure due to alcohol withdrawal: PLAN: Plan 1. Tonic-clonic seizure due to alcohol withdrawal in the setting of chronic severe alcohol abuse - Admit to PCU. Stop empiric IV Keppra and start phenobarbital taper. Give IV Ativan for breakthrough seizure activity. Alcohol cessation was strongly encouraged. Finally, we will consult [facility] teleneurology to see this patient this admission for further recommendations given his recurrent tonic-clonic seizures with help appreciated in advance. 2. Critical hypokalemia of 2.1 mmol/L present on admission complicating #1 - Give supplemental IV and p.o. KCl and then recheck level in a.m. to ensure improvement. 3. History of seizure; likely attributed to alcohol withdrawal previously in spite of gabapentin used to treat neuropathy - Noted. 4. Essential hypertension - Continue home regimen plus give as needed IV hydralazine for systolic blood pressure greater than 160 mmHg. 5. Hypothyroidism - Resume Synthroid and check TSH. 6. Obesity; with BMI of 31.2 present on admission - Weight loss will be recommended. 7. Depression with anxiety - Continue home regimen as previous. 8. DVT prophylaxis - Lovenox 40 mg sq daily. Total time: Approximately 55 minutes. Charges/Coding Visit Charges Inpatient E&M: 53291 Init Hosp L2
[2023-11-12 23:44] LABS: Magnesium 1.5 mg/dL (1.6-2.6); Phosphorus 1.1 mg/dL (2.5-4.9)
[2023-11-12] MEDS: Phenobarbital 32.4 MG Tablet 97.2 MG PO (23:44)
[2023-11-12] MEDS: Potassium Chloride Oral Tablet 20 MEQ 60 MEQ PO (23:44)
[2023-11-13] MEDS: traZODone 100 MG Tablet PO (00:20)
[2023-11-13] MEDS: Gabapentin 600 MG Tablet PO (00:20)
[2023-11-13] MEDS: MELATONIN 3 MG TABLET PO (00:20)
[2023-11-13] MEDS: 0.9% Saline Lock 10 ML Syringe IV ×2 (00:22→05:29)
[2023-11-13] MEDS: Potassium Phosphate 40 MM in 0.9% Normal Saline (500mL Bag) 500 ML 62.5 MM IV (00:56)
[2023-11-13 01:41] LABS: Amphetamine Urine VISTA NEGATIVE (<1000 ng/mL); Barbiturate Urine VISTA NEGATIVE (< 200 ng/mL); Benzodiazepine Urine VISTA POSITIVE (< 200 ng/mL); Cocaine Urine VISTA NEGATIVE (< 300 ng/mL); Ecstacy Urine VISTA NEGATIVE (< 500 ng/mL); Methadone Urine VISTA NEGATIVE (< 300 ng/mL); PCP Urine VISTA NEGATIVE (< 25 ng/mL); THC Urine VISTA NEGATIVE (< 50 ng/mL); Vista UDS pH Range 6
[2023-11-13 03:40] VITALS: BMI 30.7
[2023-11-13] MEDS: Magnesium Sulfate 2 GM in Dextrose 5%-Water (100mL Bag) 100 ML IV (04:12)
[2023-11-13 04:15] VITALS: BP 96/51; PULSE 52; RESP 15; TEMP 36.4; O2SAT 97
[2023-11-13] MEDS: Phenobarbital 32.4 MG Tablet 97.2 MG PO ×3 (04:42→11:35)
[2023-11-13] MEDS: Levothyroxine 25 MCG TABLET PO (04:42)
[2023-11-13] MEDS: KCL 20MEQ in 0.9% NS 20 MEQ/1,000 ML IV.SOLN. 125 MEQ IV (05:29)
[2023-11-13 07:03] VITALS: BP 91/56; PULSE 51; RESP 15; TEMP 36.3; O2SAT 97
[2023-11-13 07:23] LABS: Absolute Lymphocyte Count 2.16 X10^3/uL (0.83-4.51); Absolute Neutrophil Count 3.9 X10^3/uL (2.0-7.7); Basophil# 0.06 X10^3/uL; Basophil% 0.9 % (0-1); Eosinophil# 0.14 X10^3/uL; Eosinophils% 2.1 % (0-5); Hematocrit 29.5 % (40-54); Hemoglobin 9.7 g/dL (13.0-16.5); Lymphocyte # 2.16 X10^3/ul (0.83-4.51); Lymphocyte % 32.2 % (19-41); Mean Corp Hgb Conc 32.9 g/dL (32-36); Mean Corpuscular Hgb 26.9 pg (27.0-32.0); Mean Corpuscular Volume 81.7 fL (80-94); Mean Platelet Vol. 9.2 fl (6.2-12.0); Monocyte# 0.39 X10^3/uL; Monocyte% 5.8 % (0-10); NRBC Flagged by Analyzer 0 % (0-5); Neutrophil # 3.93 X10^3/uL (2.7-7.7); Neutrophil % 58.7 % (47-70); Platelet Count 165 K/mm3 (150-450); RBC Distribution Width CV 13.6 % (11.6-14.6); RBC Distribution Width SD 40.8 fl (35.1-43.9); Red Blood Count 3.61 M/mm3 (4.6-6.2); White Blood Count 6.7 K/mm3 (4.4-11.0)
[2023-11-13 07:50] VITALS: BP 94/52; PULSE 50; RESP 12; TEMP 36.6; O2SAT 100
[2023-11-13 08:11] LABS: AST(SGOT) 121 U/L (15-37); Alanine Aminotransfer ALT/SGPT 47 U/L (16-61); Albumin, Serum 2.5 g/dL (3.2-5.0); Alkaline Phosphatase 144 U/L (45-117); Anion Gap 5 (5-15); BUN 12 mg/dL (7-18); BUN/Creat Ratio 14.5 RATIO (10-20); Calcium,Total 7.4 mg/dL (8.5-10.1); Chloride 107 mmol/L (98-107); Creatinine, Serum 0.83 mg/dL (0.70-1.30); EST Glomerular Filtration Rate 101 mL/min (>60); Est Glom Filt Rate - Afr Amer 123 mL/min (>60); Estimated Creatinine Clearance 106.64 ml/min; Globulin 2.6 g/dL (2.2-4.2); Glucose 112 mg/dL (74-106); Potassium 2.4 mmol/L (3.5-5.1); Protein, Total 5.1 g/dL (6.4-8.2); Sodium Level 140 mmol/L (136-145); Thyroid Stim Hormone (TSH) 0.99 uIU/mL (0.358-3.74)
[2023-11-13] MEDS: Folic Acid 1 MG Tablet PO (08:24)
[2023-11-13] MEDS: Enoxaparin 40 MG/0.4 ML Syringe SC (08:24)
[2023-11-13] MEDS: Sertraline 100 MG Tablet PO (08:24)
[2023-11-13] MEDS: Thiamine Hydrochloride 100 MG Tablet PO (08:24)
[2023-11-13] MEDS: Potassium Chloride Oral Tablet 20 MEQ 40 MEQ PO (08:55)
[2023-11-13 08:56] VITALS: PULSE 50
[2023-11-13 09:27] LABS: Magnesium 2.2 mg/dL (1.6-2.6); Phosphorus 2.6 mg/dL (2.5-4.9)
--- NOTE | 2023-11-13 10:05 | CASEMGMT ---
RN?CM?MENTAL HEALTH CLINICIAN?CM?to room to meet with patient for initial transition planning/care coordination?assessment.?RN?CM?introduced self and role at [facility].? Pt voices understanding and consents to?assessment?at this time.? Pt resting in bed in no distress at this time. Pt's mother @ bedside and pt agreeable to her being present during assessment. ? Pt is A/O at this time and answers all questions appropriately.?? Care providers, pharmacy, and demographics verified/updated at this time. PCP: [place] Preferred Pharmacy: [facility] @ discharge. Insurance: [facility] only Prescription Benefit:? [facility] only Living Will/HPOA:?Pt does not currently have LW/HCPOA and declines info at this time.? Pt made aware that he can contact as an out-pt and make appt in the future if he decides he would like to talk with someone about this or would like to utilize [facility] social work for advanced directive completion.? LNOK: Pt states he is still legally , but is in the process of going through a divorce. Pt has a 21-yr-old son. Mother, Cristine Crane. Living Arrangements: Lives alone in 2-story home w/2 steps to enter. [employer]. Independent. Transportation:?Pt states drives self and states no transportation concerns at this time.?Mom will take him home @ discharge. DME: ? Denies using any DME and denies needs.? HHC/SNF: No hx of either. Denies needs and no needs identified. ETOH: Hx of ETOH abuse since the age of 24. Pt states he started drinking when he was in the [place]. Pt reports to this EDNA MONGE that he has been doing virtual counseling visits for ETOH addiction through the [place] and that he has not drank for 2 months and discreetly pointed towards his mother @ bedside, without her seeing him do this, indicating he did was not talking openly with this EDNA MONGE. Pt's mother then interjected and states she has concerns w/the info pt provided and states it is not accurate, stating she has seen him buy ETOH @ the store recently. Pt looked @ his mother and stated, It's ok, I'm handling it. EDNA MONGE offered ETOH resources but he declined, stating he has had a lot of education and does not need anything else. EDNA MONGE let pt know to ask for CM/SW if he changes his mind and would be open to any resources or wishes to talk with someone about this further. He voices understanding. RANGEL, Tiffany, made aware of above. Pt also states he is leaving today at noon No matter what and states he does not care if he is medically ready for discharge or not, that he is leaving. Dr Flores made aware. Pt wishes to return home and states has no concerns with going home at time of discharge.? CM?to follow for any further discharge planning/needs.? PLAN:??Home [facility] SAMUELN?RN?CM
--- NOTE | 2023-11-13 15:07 | PN.HOSP_ITS ---
Subjective Subjective With his mother out of the room, he admits that he has a drinking problem but refuses to continue with the alcohol withdrawal protocol here in the hospital. He says that he will pursue help through the [place]. He said that his first seizure was around 9 days ago and that was also during a period of abstinence from al cohol. He also says that this seizure that happened yesterday was on day 2 or 3 of abstinence from alcohol both of which are consistent with alcohol withdrawal seizures. Objective Data Objective Data Vital Signs: Vital Signs Temp Pulse Resp BP Pulse Ox O2 Del Method O2 Flow Rate 97.8 F 50 L 12 94/52 L 100 Room Air 2 11/13/23 07:50 11/13/23 08:56 11/13/23 07:50 11/13/23 07:50 11/13/23 07:50 11/13/23 07:50 11/12/23 18:39 Oxygen Flow Rate (L/min) 2 Oxygen Delivery Method Room Air Weight: 202 lb 2.622 oz Body Mass Index (BMI) 30.7 Intake & Output: Intake and Output for Last 24 Hours 11/12/23 11/13/23 11/14/23 03:59 03:59 03:59 Intake Total 1300 / 1339 910.5873 / 617.3333 Balance 1300 / 8560 565.4314 / 617.3333 Lab / Micro Data 11/13/23 07:10 11/13/23 07:10 Labs: Laboratory Results - last 24 hr 11/12/23 17:00: WBC 9.7, RBC 4.34 L, Hgb 12.0 L, Hct 35.2 L, MCV 81.1, MCH 27.6, MCHC 34.1, RDW Std Deviation 40.9, RDW Coeff of [place]u 14.0, Plt Count 209, MPV 9.3, Immature Gran % (Auto) 0.300, Neut % (Auto) 79.2 H, Lymph % (Auto) 14.4 L, [place] % (Auto) 5.5, Eos % (Auto) 0.2, Baso % (Auto) 0.4, Absolute Neuts (auto) 7.7, Absolute Lymphs (auto) 1.39, Nucleated RBC % 0, PT 14.2, INR 1.1, APTT 27.0, Sodium 137, Potassium 2.1 L*, Chloride 101, Carbon Dioxide 27.0, Anion Gap 9, BUN 14, Creatinine 1.37 H, Estim Creat Clear Calc 65.11, Est GFR (MDRD) Af Amer 68, Est GFR (MDRD) Non-Af 57 L, BUN/Creatinine Ratio 10.2, Glucose 170 H, Calcium 8.4 L, Phosphorus 1.1 L*, Magnesium 1.5 L, Total Bilirubin 0.70, AST 183 H, ALT 62 H, Alkaline Phosphatase 191 H, Total Protein 6.3 L, Albumin 3.1 L, Globulin 3.2, Albumin/Globulin Ratio 1.0, Lipase 44, Ethyl Alcohol < 3.0 11/12/23 17:50: Urine Color Yellow, Urine Clarity Clear, Urine pH 6.0, Ur Specific [place] 1.010, Urine Protein 30 H, Urine Glucose (UA) Normal, Urine Ketones Negative, Urine Occult Blood 150 H, Urine Nitrite Negative, Urine Bilirubin Negative, Urine Urobilinogen Normal, Ur Leukocyte Esterase 25 H, Urine RBC 5-10 SEEN, Urine WBC 0 SEEN, Ur Squamous Epith Cells 0 SEEN, Urine Bacteria 0 SEEN, Urine Mucus 0 SEEN 11/13/23 01:00: Urine Opiates Screen NEGATIVE, Urine Methadone Screen NEGATIVE, Ur Barbiturates Screen NEGATIVE, Ur Phencyclidine Scrn NEGATIVE, Ur Amphetamines Screen NEGATIVE, MDMA (Ecstasy) Screen NEGATIVE, U Benzodiazepines Scrn POSITIVE H, Urine Cocaine Screen NEGATIVE, U Cannabinoids Screen NEGATIVE, Ur Drug Screen Comment 11/13/23 07:10: WBC 6.7, RBC 3.61 L, Hgb 9.7 L, Hct 29.5 L, MCV 81.7, MCH 26.9 L , MCHC 32.9, RDW Std Deviation 40.8, RDW Coeff of [place] 13.6, Plt Count 165, MPV 9.2, Immature Gran % (Auto) 0.300, Neut % (Auto) 58.7, Lymph % (Auto) 32.2, [place] % (Auto) 5.8, Eos % (Auto) 2.1, Baso % (Auto) 0.9, Absolute Neuts (auto) 3.9, Absolute Lymphs (auto) 2.16, Nucleated RBC % 0, Sodium 140, Potassium 2.4 L*, Chloride 107, Carbon Dioxide 28.0, Anion Gap 5, BUN 12, Creatinine 0.83, Estim Creat Clear Calc 106.64, Est GFR (MDRD) Af Amer 123, Est GFR (MDRD) Non-Af 101, BUN/Creatinine Ratio 14.5, Glucose 112 H, Calcium 7.4 L, Phosphorus 2.6, Magnesium 2.2, Total Bilirubin 0.70, AST 121 H, ALT 47, Alkaline Phosphatase 144 H, Total Protein 5.1 L, Albumin 2.5 L, Globulin 2.6, Albumin/Globulin Ratio 1.0, TSH 0.99 Radiography Diagnostic Testing: Radiology Impression Brain CT 11/12/23 16:41 IMPRESSION: Normal unenhanced CT scan of the brain. Electronically Signed: Buddy Ibarra MD at 17:41 EDT , Physical Exam Narrative General: Alert, Oriented x3, Cooperative, No apparent distress HEENT: [place] in the right parietal occipital region of the scalp, PERRLA, EOMI, Normocephalic Oral: Moist Mucosa Neck: Supple, No JVD Lungs: Diminished, Normal air movement, No rhonchi, No wheeze, No rales Cardiovascular: Regular rate, Regular Rhythm, Normal S1, Normal S2, No murmurs Abdomen: Soft, Non Tender, Non-Distended, No Hepato-splenomegaly Extremities: No edema, Capillary Refill Less than 3 Seconds Skin: No rashes, No breakdown Musculoskeletal: No Tenderness to Palpation of Joints or Extremities Neurological: No focal neurological deficits, Motor Exam 5/5 strength throughout, Sensory exam intact to light touch and pain Psych/Mental Status: Normal Affect, Appropriate Assessment & Plan Assessment/Plan (1) Tonic-clonic seizure: (2) Hypokalemia: (3) History of alcohol abuse: (4) History of seizure due to alcohol withdrawal: PLAN: Plan 1. Alcohol withdrawal seizure/anxiety/depression ? Refuses to continue with the alcohol withdrawal protocol and he has requested to leave AMA ? I did ask that he stay at least until to see teleneurology at which point he says that he would give them until noon unfortunately they were unable to see him before then so he did leave AMA we did discuss the risks of leaving AGAINST MEDICAL ADVICE. ? I did prescribe Keppra on discharge and he did at least stay to have his electrolytes repleted which were significantly low with both magnesium and phosphorus and potassium needing to be repleted during his hospitalization ? He did state that he [facility] ? Also discharged on thiamine and folic acid 2. Essential HTN ? Can resume his home blood pressure medications 3. Hypothyroidism ? TSH is normal, can resume Synthroid DVT: Lovenox 50 minutes was spent discussing his care as well as documentation and treatment and discussing his AMA Charges/Coding Visit Charges Inpatient E&M: 12780 Subs Hosp L3
== END 2023-11-13 12:24 | disposition left against medical advice (07) | DRG 894 ==
LOC: ED 21:43 → PCU 22:13
PROVIDERS: Admitting Provider Internal Medicine; Emergency Provider Emergency Medicine; Visit Provider Family Medicine
DX: F10.130 Alcohol abuse with withdrawal, uncomplicated (principal); G40.89 Other seizures; E83.39 Other disorders of phosphorus metabolism; E03.9 Hypothyroidism, unspecified; I10 Essential (primary) hypertension; F32.A Depression, unspecified; F41.9 Anxiety disorder, unspecified; E87.6 Hypokalemia; G62.9 Polyneuropathy, unspecified; E83.42 Hypomagnesemia; E66.9 Obesity, unspecified; Z68.31 Body mass index [BMI] 31.0-31.9, adult; Y90.0 Blood alcohol level of less than 20 mg/100 ml; S01.01XD Laceration without foreign body of scalp, subsequent encounter; X58.XXXD Exposure to other specified factors, subsequent encounter; Z79.890 Hormone replacement therapy; Z79.899 Other long term (current) drug therapy
CPT/HCPCS: 36415; 70450; 80053; 80307; 80320; 81001; 83690; 83735; 84100; 84443; 85025; 85610; 85730; 99285; J7030; J7040; A4216; G0480

== ENCOUNTER 2024-04-03 09:09 | Emergency (ER) | payer OTHER, SELFPAY ==
[2024-04-03 09:15] VITALS: BP 104/55; PULSE 89; RESP 16; TEMP 36.8; O2SAT 93; BMI 30.9
--- NOTE | 2024-04-03 09:29 | CT_ITS ---
STUDY: CT BRAIN WITHOUT CONTRAST REASON FOR EXAM: Male, 58 years old. History of seizure. RADIATION DOSAGE (If Supplied By Facility): CTDIvol = ( 44.99 ) mGy, DLP = ( 829.85 ) mGycm TECHNIQUE: Transaxial CT imaging of the brain was performed without administration of intravenous contrast material. Individualized dose optimization techniques were used for this CT. COMPARISON: Comparison is made with prior study dated November 12, 2023. FINDINGS: Normal soft tissue structures. Normal calvarium. Normal size ventricles and extra-axial spaces for the patient''s age. Normal white matter tracts of the cerebral hemispheres. Normal basal ganglia and thalami. Normal brainstem. Normal cerebellum. There is no intracranial hemorrhage. There are no findings of an acute ischemic infarction. Normal visualized paranasal sinuses. Nasal septal deviation towards the right side of the midline. CT/Brain/Head without Contrast IMPRESSION: Normal unenhanced CT scan of the brain. Electronically Signed: Quentin Gore MD at 10:18 EDT ,
--- NOTE | 2024-04-03 09:30 | EX.ED.DYSGE1 ---
HPI History of Present Illness Chief Complaint: Seizure Informant: patient and EMS Narrative Narrative: 58-year-old male was sitting on a bench/chair waiting to see his booking police officer apparently felt funny and had a seizure. He woke up on the floor. Bit his lip and hit his head. Denies any pain or injury elsewhere. Denies having a headache right now or any other symptoms right now. He states seizures started 6-12 months ago, he had about 3 open prior to this but the [facility] they told him they did not think he needed them anymore and so he has been off of seizure medication for maybe 2 or 3 months. He thinks it may have been Keppra. He had an MRI and an EEG as an outpatient and after following up with neurology. [facility]. [facility] Medical History Seizures Hypertension Anxiety Depression Home Medications ?Medication ?Instructions ?Recorded ?Last Taken ?Type lisinopril 10 mg tablet 20 mg PO DAILY blood pressure 07/09/15 07/09/15 History lorazepam 1 mg tablet 1 mg PO TID PRN Anxiety 05/26/16 05/26/16 History metoprolol succinate 50 mg 50 mg PO DAILY blood pressure 05/26/16 Unknown History tablet,extended release 24 hr sertraline 100 mg tablet 100 mg PO BID mental health 05/26/16 Unknown History gabapentin 600 mg tablet 600 mg PO TID neuropathy 07/13/22 Unknown History levothyroxine 25 mcg tablet 25 mcg PO DAILY thyroid 07/13/22 Unknown History folic acid 1 mg tablet 1 mg PO DAILY@0800 30 days #30 tabs 11/13/23 Unknown Rx levetiracetam 500 mg tablet 500 mg PO BID #60 tabs 11/13/23 Unknown Rx (Keppra) thiamine HCl (vitamin B1) 100 mg 100 mg PO DAILYCM 30 days #30 tabs 11/13/23 Unknown Rx tablet (Vitamin B-1) levetiracetam 500 mg tablet 1,000 mg (2 x 500 mg) PO BID #120 04/03/24 Unknown Rx (Keppra) tabs Allergy/AdvReac Type Severity Reaction Status Date / Time No Known Allergies Allergy Verified 11/12/23 23:14 Surgical History History of appendectomy Social History Smoking Status: Never smoker ROS ROS ED Constitutional Constitutional ED: Denies chills or fever(s) Eyes Eyes: Denies change in vision or diplopia ENT ENT ED: Denies rhinorrhea or sore throat Cardiovascular Cardiovascular: Denies chest pain or palpitations Respiratory/Chest Respiratory/Chest: Denies cough or dyspnea Gastrointestinal Gastrointestinal: Denies abdominal pain, diarrhea, nausea or vomiting Genitourinary Genitourinary ED: Denies dysuria or hematuria Musculoskeletal Musculoskeletal: Denies back pain or neck pain Integumentary Reports Abrasions and laceration; Denies abscess or rash Neurologic Neurologic: Reports seizures; Denies headache(s), paresthesias or weakness Psychiatric Psychiatric: Denies anxiety or suicidal thoughts EXAM Physical Exam Const Vital Signs: 04/03/24 09:15 04/03/24 11:10 Temperature 98.2 F Temperature Source Oral Pulse Rate 89 73 Respiratory Rate 16 16 Blood Pressure 104/55 L 115/64 Blood Pressure Mean 71 81 Pulse Ox 93 98 Oxygen Delivery Method Room Air Room Air Positive well nourished and well developed General Appearance ED: well developed and NAD HEENT Reports moist mucous membranes HEENT Narrative: posterior top of scalp, 3 cm full-thickness linear laceration clean, no depression or crepitance. No other signs of head trauma. No Schmid sign. No raccoon eyes. No CSF otorhinorrhea or hemotympanum. normocephalic, trauma and tenderness Eyes PERRL and EOMs intact bilaterally Neck full ROM and supple Resp normal respiratory effort and clear to auscultation bilaterally Cardio regular rate, regular rhythm and no murmurs GI non-tender and non-distended Auscultation: normoactive bowel sounds Palpation: soft Back/Spine no CVA tenderness General Back: other FROM Extremity normal to inspection General Extremety ED: Negative for edema, pulses abnormal or tenderness General Extremity: Negative for edema or pulses abnormal Neuro oriented x3, CN's II-XII intact bilaterally and no sensory deficits noted Sensorium / Orientation: awake and alert Motor Exam: strength 5/5 throughout Psych mental status grossly normal Skin no rashes or lesions noted and no wounds Skin Narrative: Scalp laceration. Abrasions to the right side of the face without bony tenderness. MDM MDM MDM Narrative Medical decision making narrative: CT head obtained to rule out intracranial injury I reviewed the images and the report which I agree with, it is negative for any acute. Urinalysis no signs of infection. I do not think he needs lab work. He is doing well no seizure activity was given a gram of Keppra and going to give him a prescription for 1000 mg twice daily, and he will [facility]. He understands no driving. Of note, it was seen that the patient has a history of alcohol abuse and withdrawal. He states he is following with his veterans service officer, and has not had a drop of alcohol in months so he is not likely in acute withdrawal. His blood pressure supports that. Lab Data Attestation: I reviewed the patient's lab results. Labs: Laboratory Results - last 24 hr 04/03/24 10:00 Urine Color Yellow Urine Clarity Sl. Cloudy Urine pH 6.0 Ur Specific Bim 1.015 Urine Protein 30 H Urine Glucose (UA) Normal Urine Ketones Negative Urine Occult Blood 50 H Urine Nitrite Negative Urine Bilirubin Negative Urine Urobilinogen 1 H Ur Leukocyte Esterase 25 H Urine RBC 0-5 SEEN Urine WBC 0-5 SEEN Ur Squamous Epith Cells 0-5 SEEN Calcium Oxalate Crystal RARE Urine Bacteria 2+ Urine Mucus 0 SEEN Urine Yeast 2+ Radiography Diagnostic Testing: Clinical Impression(s) from Imaging Studies Brain CT 04/03/24 09:29 IMPRESSION: Normal unenhanced CT scan of the brain. Electronically Signed: Quentin Gore MD at 10:18 EDT , Procedures Lacerations Scalp: Length: 3 cm Depth: Sub Q Shape: Linear Prep: Sterile Conditions and Chlorhexadine (Scrubbed) Laceration repair: Lidocaine with epi (2 cc, 1%), Local and Skin sutures (Elias) Number of Sutures/Elias: 3 Discharge Plan Triage Chief Complaint: Seizure ED Provider: Bashir Devlin Dx/Rx/DC Orders Clinical Impression: Closed head injury without concussion, Seizure, Laceration of scalp Instructions: ED Head Injury (Adult), ED Laceration, All Closures Prescriptions: New levetiracetam [Keppra] 500 mg tablet 1,000 mg PO BID Qty: 120 0RF No Action lisinopril 10 MG tablet 20 mg PO DAILY Patient Comments: metoprolol succinate 50 MG tablet 50 mg PO DAILY sertraline 100 MG tablet 100 mg PO BID lorazepam 1 MG tablet 1 mg PO TID PRN (Reason: Anxiety) gabapentin 600 mg tablet 600 mg PO TID Patient Comments: TAKE 1 TABLET BY MOUTH THREE TIMES DAILY levothyroxine 25 mcg tablet 25 mcg PO DAILY Patient Comments: TAKE 1 TABLET BY MOUTH ONCE DAILY thiamine HCl (vitamin B1) [Vitamin B-1] 100 mg Tablet 100 mg PO DAILYCM 30 Days Qty: 30 0RF folic acid 1 mg Tablet 1 mg PO DAILY@0800 30 Days Qty: 30 0RF levetiracetam [Keppra] 500 mg tablet 500 mg PO BID Qty: 60 0RF [facility] Provider[facility] - 7 Days for suture removal Print Language: Algerian Disposition Disposition: Home, Self Care
[2024-04-03] MEDS: Lidocaine 1% /Epi 1:100 (20ml) 20 ML Vial 5 ML INFILT (09:43)
[2024-04-03] MEDS: levETIRAcetam 1,000 MG Tablet 1000 MG PO (09:43)
[2024-04-03 10:09] LABS: Mucous, Urine 0 SEEN /hpf (<or=2+)
[2024-04-03 10:12] LABS: Color, Urine Yellow (Yellow); Glucose, Dipstick Normal (Normal); Ketone-Dipstick Negative (Negative); Leukocyte Esterase-Dipstick 25 /ul (Negative); Nitrite-Dipstick Negative (Negative); Occult Blood-Urine 50 /ul (Negative); Protein-Dipstick 30 mg/dl (Negative); Specific Gravity, Urine 1.015 (1.002-1.030); Urine Bilirubin Dipstick Negative (Negative); Urine Clarity Sl. Cloudy (Clear); Urine Urobilinogen 1 mg/dl (Normal)
[2024-04-03 10:20] LABS: Bacteria 2+ /hpf (None Seen); Red Blood Cells-Urine 0-5 SEEN /hpf (0-5); White Blood Cells 0-5 SEEN /hpf (0-5)
[2024-04-03 10:21] LABS: Calcium Oxalate Crystals Ur RARE /hpf (<or=2+); Squamous Epithelial Cells - UA 0-5 SEEN /hpf (0-5)
[2024-04-03 10:24] LABS: Yeast-Urine 2+ /hpf (None Seen)
[2024-04-03 11:10] VITALS: BP 115/64; PULSE 73; RESP 16; O2SAT 98
[2024-04-03 12:31] VITALS: BP 128/78; PULSE 78; RESP 16; TEMP 36.6; O2SAT 99
--- NOTE | 2024-04-03 13:07 | ED.RN ---
This Rn advised pt not to drive since he's had 4 seizures in the past 6 months. Pt voices understanding.
== END 2024-04-03 12:46 | disposition home or self-care (01) ==
PROVIDERS: Emergency Provider Emergency Medicine; Visit Provider Emergency Medicine
DX: S01.01XA Laceration without foreign body of scalp, initial encounter (principal); G40.909 Epilepsy, unspecified, not intractable, without status epilepticus; S09.90XA Unspecified injury of head, initial encounter; S00.81XA Abrasion of other part of head, initial encounter; W19.XXXA Unspecified fall, initial encounter; I10 Essential (primary) hypertension; F41.9 Anxiety disorder, unspecified; F32.A Depression, unspecified; Z79.899 Other long term (current) drug therapy; Z87.898 Personal history of other specified conditions
CPT/HCPCS: 12002; 70450; 81001; 99284; A4216

== ENCOUNTER 2024-04-10 15:11 | Emergency (ER) | payer OTHER, SELFPAY ==
[2024-04-10 15:11] VITALS: BP 107/74; PULSE 83; RESP 16; TEMP 36.9; O2SAT 100; BMI 31.1
--- NOTE | 2024-04-10 15:42 | EX.ED.DYSGE1 ---
HPI History of Present Illness Chief Complaint: Suture Remv Informant: patient Narrative Narrative: 58-year-old male presenting to the emergency room for staple removal. Patient states he had a seizure recently and sustained a laceration to his occiput. He had 3 pam placed and he states it is time for them to be removed. He has not had a seizure since and is on Keppra currently. He denies any problems with wound healing at this time [facility] Medical History Seizures Hypertension Anxiety Depression Home Medications ?Medication ?Instructions ?Recorded ?Last Taken ?Type lisinopril 10 mg tablet 20 mg PO DAILY blood pressure 07/09/15 07/09/15 History lorazepam 1 mg tablet 1 mg PO TID PRN Anxiety 05/26/16 05/26/16 History metoprolol succinate 50 mg 50 mg PO DAILY blood pressure 05/26/16 Unknown History tablet,extended release 24 hr sertraline 100 mg tablet 100 mg PO BID mental health 05/26/16 Unknown History gabapentin 600 mg tablet 600 mg PO TID neuropathy 07/13/22 Unknown History levothyroxine 25 mcg tablet 25 mcg PO DAILY thyroid 07/13/22 Unknown History folic acid 1 mg tablet 1 mg PO DAILY@0800 30 days #30 tabs 11/13/23 Unknown Rx levetiracetam 500 mg tablet 500 mg PO BID #60 tabs 11/13/23 Unknown Rx (Keppra) thiamine HCl (vitamin B1) 100 mg 100 mg PO DAILYCM 30 days #30 tabs 11/13/23 Unknown Rx tablet (Vitamin B-1) levetiracetam 500 mg tablet 1,000 mg (2 x 500 mg) PO BID #120 04/03/24 Unknown Rx (Keppra) tabs Allergy/AdvReac Type Severity Reaction Status Date / Time No Known Allergies Allergy Verified 04/10/24 15:12 Surgical History History of appendectomy Social History Smoking Status: Never smoker ROS ROS ED Constitutional Constitutional ED: Denies chills or weight loss Eyes Eyes: Denies change in vision or diplopia ENT ENT ED: Denies ear pain, rhinorrhea or sore throat Cardiovascular Cardiovascular: Denies chest pain, orthopnea, palpitations or racing heartbeat Respiratory/Chest Respiratory/Chest: Denies cough, dyspnea or orthopnea Gastrointestinal Gastrointestinal: Denies abdominal pain, diarrhea, nausea or vomiting Genitourinary Genitourinary ED: Denies dysuria, hematuria or urinary frequency Musculoskeletal Musculoskeletal: Denies arthralgias or myalgias Integumentary Denies abscess or rash Neurologic Neurologic: Denies headache(s) or weakness Psychiatric Psychiatric: Denies anxiety, depression, suicidal ideation or suicidal thoughts Endocrine Endocrinology: Denies polydipsia, polyphagia or polyuria Allergic/Immunologic Allergic/Immunologic ED: Denies mouth swelling, tongue swelling or urticaria EXAM Physical Exam Const Vital Signs: 04/10/24 15:11 Temperature 98.4 F Temperature Source Temporal Pulse Rate 83 Respiratory Rate 16 Blood Pressure 107/74 Blood Pressure Mean 85 Pulse Ox 100 Oxygen Delivery Method Room Air Positive well nourished and well developed General Appearance ED: well developed HEENT Reports normocephalic and moist mucous membranes HEENT Narrative: Healing occipital scalp laceration with [address]. This is clean dry and intact and I do not see evidence of secondary infection. Eyes PERRL and EOMs intact bilaterally Neck no lymphadenopathy, supple and no JVD Resp normal respiratory effort and clear to auscultation bilaterally Cardio regular rate, regular rhythm and no murmurs GI normal to inspection, nondistended, normoactive bowel sounds and non-tender Palpation: soft Back/Spine no CVA tenderness and normal ROM Extremity normal to inspection General Extremety ED: Negative for edema General Extremity: Negative for edema Neuro oriented x3 and CN's II-XII intact bilaterally Sensorium / Orientation: alert Motor Exam: strength 5/5 throughout Psych mental status grossly normal Mood & Affect: Negative for depressed or tearful Skin no rashes or lesions noted and no wounds MDM MDM MDM Narrative Medical decision making narrative: Differential diagnosis includes but not limited to wound dehiscence wound infection delayed healing allergic reaction Pam were removed the wound edges are still intact. He will be discharged home with continued supportive care History & Record Review Discussion w/independent historian: Patient Discharge Plan Triage Chief Complaint: Suture Remv ED Provider: Lewis Kline Dx/Rx/DC Orders Clinical Impression: Removal of pam, Visit for wound check Instructions: ED Wound Check (No Infection) Prescriptions: No Action lisinopril 10 MG tablet 20 mg PO DAILY Patient Comments: metoprolol succinate 50 MG tablet 50 mg PO DAILY sertraline 100 MG tablet 100 mg PO BID lorazepam 1 MG tablet 1 mg PO TID PRN (Reason: Anxiety) gabapentin 600 mg tablet 600 mg PO TID Patient Comments: TAKE 1 TABLET BY MOUTH THREE TIMES DAILY levothyroxine 25 mcg tablet 25 mcg PO DAILY Patient Comments: TAKE 1 TABLET BY MOUTH ONCE DAILY thiamine HCl (vitamin B1) [Vitamin B-1] 100 mg Tablet 100 mg PO DAILYCM 30 Days Qty: 30 0RF folic acid 1 mg Tablet 1 mg PO DAILY@0800 30 Days Qty: 30 0RF levetiracetam [Keppra] 500 mg tablet 500 mg PO BID Qty: 60 0RF levetiracetam [Keppra] 500 mg tablet 1,000 mg PO BID Qty: 120 0RF [facility] [[facility] Provider] - As Needed Print Language: Telugu Disposition Disposition: Home, Self Care
== END 2024-04-10 15:59 | disposition home or self-care (01) ==
PROVIDERS: Emergency Provider Emergency Medicine; Visit Provider Emergency Medicine
DX: Z48.02 Encounter for removal of sutures (principal); G40.909 Epilepsy, unspecified, not intractable, without status epilepticus; S01.01XD Laceration without foreign body of scalp, subsequent encounter; X58.XXXD Exposure to other specified factors, subsequent encounter; I10 Essential (primary) hypertension; F32.A Depression, unspecified; F41.9 Anxiety disorder, unspecified; Z79.899 Other long term (current) drug therapy
CPT/HCPCS: 99282

== ENCOUNTER 2024-09-29 19:07 | Emergency (ER) | payer OTHER, SELFPAY ==
[2024-09-29 19:09] VITALS: BP 104/54; PULSE 102; RESP 16; TEMP 36.5; O2SAT 96; BMI 30.3
--- NOTE | 2024-09-29 19:31 | RAD_ITS ---
PROCEDURE: CHEST 1 VIEW (PORTABLE) 09/29/2024 REASON FOR EXAM: SEIZURE TECHNIQUE: Frontal view of the chest. COMPARISON: None. FINDINGS: The cardiac silhouette is borderline prominent. No definite consolidation is seen within the right lung. Potential airspace opacity is present within the left lower lung zone. This may also be artifactual. Consider AP and lateral imaging. RAD/Chest 1 View (Portable) IMPRESSION: As above. Reading Location: [id number]
--- NOTE | 2024-09-29 19:33 | EKG12_ITS ---
Test Reason : DYSRHYTHMIA Blood Pressure : */* mmHG Vent. Rate : 67 BPM Atrial Rate : 67 BPM P-R Int : 172 ms QRS Dur : 90 ms QT Int : 460 ms P-R-T Axes : 61 13 15 degrees QTcB Int : 486 ms Normal sinus rhythm Nonspecific ST abnormality Prolonged QT Abnormal ECG Confirmed by CHRISTIANNE TODD, DEMIAN ([id number]), newspaper editor ELENA SMITH ([id number]) on 09/30/2024 8:31:43 AM Referred By: Confirmed By: DEMIAN FAUST MD
[2024-09-29] MEDS: 0.9% Normal Saline (1000mL) 1,000 ML 1000 ML IV (19:50)
[2024-09-29 19:57] LABS: Absolute Lymphocyte Count 1.65 X10^3/uL (0.83-4.51); Absolute Neutrophil Count 5.7 X10^3/uL (2.0-7.7); Basophil# 0.05 X10^3/uL; Basophil% 0.6 % (0-1); Eosinophil# 0.18 X10^3/uL; Eosinophils% 2.2 % (0-5); Hematocrit 28.4 % (40-54); Hemoglobin 10.2 g/dL (13.0-16.5); Lymphocyte # 1.65 X10^3/ul (0.83-4.51); Lymphocyte % 20.4 % (19-41); Mean Corp Hgb Conc 35.9 g/dL (32-36); Mean Corpuscular Hgb 33.7 pg (27.0-32.0); Mean Corpuscular Volume 93.7 fL (80-94); Mean Platelet Vol. 8.9 fl (6.2-12.0); Monocyte% 6.2 % (0-10); NRBC Flagged by Analyzer 0 % (0-5); Neutrophil # 5.65 X10^3/uL (2.7-7.7); Platelet Count 257 K/mm3 (150-450); RBC Distribution Width CV 14.7 % (11.6-14.6); RBC Distribution Width SD 50.2 fl (35.1-43.9); Red Blood Count 3.03 M/mm3 (4.6-6.2); White Blood Count 8.1 K/mm3 (4.4-11.0)
[2024-09-29 20:05] VITALS: BP 108/75; PULSE 19; RESP 75; O2SAT 93
--- NOTE | 2024-09-29 20:10 | EDS_ITS ---
HPI History of Present Illness Chief Complaint: Seizure Narrative Narrative: Chief complaint and HPI: Seizure. 58-year-old male with past medical history of alcohol withdrawal seizures, hypokalemia, alcohol abuse presents for evaluation of seizure. Patient states that he was at [facility] when I guess I had a seizure. Per EMS report, patient was at [facility] when he had a witnessed seizure. Postictal on their arrival. Patient fell from standing when he had a seizure. Patient denies any fever, chills, shortness of breath, chest pain, abdominal pain, nausea, vomiting, dysuria, headache, lightheadedness, back pain. Patient states that he used to be on Keppra for seizures however the [facility] told him his seizures were secondary to alcohol withdrawal and therefore he has been off of Keppra for a long time. Patient states that he has not had alcohol in 3 days. States he has been eating and drinking well. Patient states he is up-to-date on tetanus. Review of systems: See HPI Medications: As listed on the chart Allergies: As listed on the chart PFSH: Per chart Vital signs: As listed on the chart. Reviewed. Physical exam: Gen: A&O x3, NAD Head: Normocephalic, posterior scalp abrasion Eyes: No sclera icterus, conjunctiva clear, PERRL, EOMI ENT: TMs clear BL, dry mucous membranes, no swelling/lacerations/blood in the mouth or the nares, No nasal septal hematoma, no facial tenderness Neck: Trachea midline, No JVD, Nontender CV: RRR, no murmurs, no chest wall TTP Resp: Lungs CTA BL, no w/r/c GI: Abd soft, non-distended, non-tender, no r/r/g Musc: Full ROM, no deformity, no spinal TTP, no dennis step-offs Skin: Warm, dry, intact Neuro: Alert, oriented, grossly intact, sensation intact, GCS 15 Psych: Cooperative, appropriate mood and affect [facility] Medical History Seizures Hypertension Anxiety Depression Home Medications ?Medication ?Instructions ?Recorded ?Last Taken ?Type lisinopril 10 mg tablet 20 mg PO DAILY blood pressur e 07/09/15 07/09/15 History metoprolol succinate 50 mg 50 mg PO DAILY blood pressu re 05/26/16 Unknown History tablet,extended release 24 hr sertraline 100 mg tablet 100 mg PO BID mental health 05/26/16 Unknown History levothyroxine 25 mcg tablet 25 mcg PO DAILY thyroid Unknown History folic acid 1 mg tablet 1 mg PO DAILY@0800 30 days # 30 tabs 11/13/23 Unknown Rx thiamine HCl (vitamin B1) 100 mg 100 mg PO DAILYCM 30 days #30 tabs 11/13/23 Unknown Rx tablet (Vitamin B-1) atorvastatin 40 mg tablet 40 mg PO DAILY 09/29/24 Unkn own History gabapentin 300 mg capsule 600 mg PO TID 09/29/24 Unkno wn History lisinopril 20 mg tablet 20 mg PO DAILY 09/29/24 Unkn own History potassium chloride 20 mEq 40 meq (2 x 20 mEq) PO DAILY 3 09/29/24 Unknown Rx tablet,extended release days #6 tabs Allergy/AdvReac Type Severity Reaction Status Date / Time No Known Allergies Allergy Verified 04/10/24 15:12 Surgical History History of appendectomy Social History Smoking Status: Never smoker EXAM Physical Exam Const Vital Signs: 09/29/24 19:09 09/29/24 20:05 09/29/24 21:00 Temperature 97.7 F L Temperature Source Oral Pulse Rate 102 H 19 L Respiratory Rate 16 75 H Blood Pressure 104/54 L 108/75 104/61 Blood Pressure Mean 70 86 75 Pulse Ox 96 93 Oxygen Delivery Method Room Air Room Air 09/29/24 22:00 09/29/24 22:39 Temperature 98.7 F Temperature Source Pulse Rate 76 99 Respiratory Rate 12 18 Blood Pressure 91/53 L 90/45 L Blood Pressure Mean 65 60 Pulse Ox 98 100 Oxygen Delivery Method Room Air MDM MDM MDM Narrative Medical decision making narrative: 58-year-old male with past medical history of alcohol withdrawal seizures, hypokalemia, alcohol abuse presents for evaluation of seizure. Patient is not on medication for seizures as they are due to alcohol withdrawal. Patient states that he has not had a drink in 3 days. Patient states that he is not interested in detox. He states that he wants to discharge home. However on further discussion, patient is willing to let me perform further workup. Differential diagnosis includes but is not limited to alcohol withdrawal or seizures, electrolyte abnormality, fracture, intracranial bleed, dehydration, SERJIO, substance abuse. Laboratory workup ordered including CT head and neck. CBC without leukocytosis. Patient has baseline anemia. CMP consistent with dehydration. Patient has hypokalemia of 2.9, Hypochloremia of 93, and SERJIO with creatinine of 1.67. He also has an anion gap of 17. This is likely secondary to his dehydration as well as alcohol abuse. Fluids running. P.o. potassium ordered. Magnesium level unremarkable. Patient has hyperbilirubinemia of 1.52, direct is elevated at 0.87. He has transaminitis. Patient currently not endorsing any abdominal pain. Lipase unremarkable. UA negative for UTI. Urine drug screen negative. Ethanol level negative. CT brain without any acute traumatic injury. CT cervical spine without any acute traumatic injury. Patient will warrant admission for his electrolyte derangements, SERJIO, and alcohol withdrawal seizure. Patient was updated on all his results and my recommendation for admission. Patient states that he will not be admitted to emergency department and instead will be discharging home. I explained to him that this is not safe. He states that he wants to leave AGAINST MEDICAL ADVICE. I personally explained to him that choosing to do so may result permanent bodily harm or . I discussed at length that without further evaluation and monitoring there may be unforeseen circumstances and deterioration causing permanent bodily harm or because of his choice. He is alert and oriented and can make his own decision. He states that he is aware of the serious risks as explained but he continues to leave AGAINST MEDICAL ADVICE. Considering his decision to leave AGAINST MEDICAL ADVICE, I did tell him to [facility] with [facility] and he was aware of the importance of following up as instructed. I gave him potassium replacement for home as well as gave him an order to have a BMP repeated. I advised that he should return to the ED immediately if he changes his mind at any time or if his condition begins to change or worsen. He confirmed understand the plan. Patient left AGAINST MEDICAL ADVICE. EKG: Interpreted by me/EM physician: EKG shows normal sinus rhythm with nonspecific ST changes. Patient has a prolonged QTc at 480. Heart rate 67 Diagnostic:c Interpreted by me/EM physician: Chest x-ray without pneumonia, effusion, cardiomegaly, pneumothorax Impression: 1. Alcohol withdrawal seizure 2. Hypokalemia 3. Dehydration 4. Hyperbilirubinemia 5. Transaminitis 6. Closed head injury 7. Posterior scalp abrasion 8. Left AGAINST MEDICAL ADVICE Lab Data Labs: Laboratory Results - last 24 hr 09/29/24 09/29/24 09/29/24 19:45 19:46 22:11 WBC 8.1 RBC 3.03 L Hgb 10.2 L Hct 28.4 L MCV 93.7 MCH 33.7 H MCHC 35.9 RDW Std Deviation 50.2 H RDW Coeff of Kanu 14.7 H Plt Count 257 MPV 8.9 Immature Gran % (Auto) 0.600 Neut % (Auto) 70.0 Lymph % (Auto) 20.4 [place] % (Auto) 6.2 Eos % (Auto) 2.2 Baso % (Auto) 0.6 Absolute Neuts (auto) 5.7 Absolute Lymphs (auto) 1.65 Nucleated RBC % 0 Sodium 136 Potassium 2.9 L Chloride 93 L Carbon Dioxide 25.8 Anion Gap 17 H BUN 22 H Creatinine 1.67 H Estim Creat Clear Calc 52.03 Est GFR (MDRD) Non-Af 47 L BUN/Creatinine Ratio 13.2 Glucose 148 H Calcium 8.8 Magnesium 1.5 Total Bilirubin 1.52 H Direct Bilirubin 0.87 H AST 90 H ALT 48 H Alkaline Phosphatase 174 H Total Protein 6.6 Albumin 3.6 Globulin 3.0 Lipase 35 Urine Color Yellow Urine Clarity Clear Urine pH 6.5 Ur Specific [place] 1.010 Urine Protein 30 H Urine Glucose (UA) Normal Urine Ketones Negative Urine Occult Blood 25 H Urine Nitrite Negative Urine Bilirubin Negative Urine Urobilinogen Normal Ur Leukocyte Esterase 25 H Urine RBC 0 SEEN Urine WBC 0 SEEN Ur Squamous Epith Cells 0-5 SEEN Urine Bacteria 0 SEEN Urine Mucus 0 SEEN Urine Opiates Screen NEGATIVE U Buprenorphine Qual NEGATIVE Ur Oxycodone Screen NEGATIVE Urine Methadone Screen NEGATIVE Urine Fentanyl Screen NEGATIVE Ur Barbiturates Screen NEGATIVE Ur Phencyclidine Scrn NEGATIVE Ur Amphetamines Screen NEGATIVE U Benzodiazepines Scrn NEGATIVE Urine Cocaine Screen NEGATIVE U Cannabinoids Screen NEGATIVE Ethyl Alcohol < 10.1 POC Glucose 148 H Radiography Diagnostic Testing: Clinical Impression(s) from Imaging Studies Chest X-Ray 09/29/24 19:31 IMPRESSION: As above. Reading Location: [id number] Brain CT 09/29/24 20:15 IMPRESSION: No acute intracranial hemorrhage, mass effect or midline shift. Reading Location: [id number] Cervical Spine CT 09/29/24 20:15 IMPRESSION: NO ACUTE CERVICAL FRACTURE Reading Location: [id number] Discharge Plan Triage Chief Complaint: Seizure ED Provider: Aguila Lambert Dx/Rx/DC Orders Prescriptions: New potassium chloride 20 mEq tablet extended release 40 meq PO DAILY 3 Days Qty: 6 0RF No Action lisinopril 10 MG tablet 20 mg PO DAILY Patient Comments: metoprolol succinate 50 MG tablet 50 mg PO DAILY sertraline 100 MG tablet 100 mg PO BID levothyroxine 25 mcg tablet 25 mcg PO DAILY Patient Comments: TAKE 1 TABLET BY MOUTH ONCE DAILY thiamine HCl (vitamin B1) [Vitamin B-1] 100 mg Tablet 100 mg PO DAILYCM 30 Days Qty: 30 0RF folic acid 1 mg Tablet 1 mg PO DAILY@0800 30 Days Qty: 30 0RF atorvastatin 40 mg tablet 40 mg PO DAILY lisinopril 20 mg tablet 20 mg PO DAILY gabapentin 300 mg capsule 600 mg PO TID Other Ambulatory Orders: Basic Metabolic Profile (BMP) (Routine) Timeframe: 3 Days Facility: [facility] - Location: Laboratory Ordered By: Dr. Aguila Lambert [facility] Provider[facility] [Primary Care Provider] - As soon as possible Activity Restrictions/Additional Instructions: You have chosen to leave against medical advice. I personally explained to you that choosing to do so may result in permanent bodily harm or . You are alert and oriented and can make your own decisions. You have stated that you were aware of the serious risks as explained but that you continue to wish to leave AGAINST MEDICAL ADVICE. Please follow-up with Your primary care physician at the [place]. Please waste picker the potassium prescription. Please have your labs repeated. You should return to the ED immediately if you change your mind at any time or your condition worsens or changes. Print Language: Estonian Disposition Disposition: Against Medical Advice Discharge Date/Time: 09/29/24 22:51
--- NOTE | 2024-09-29 20:15 | CT_ITS ---
PROCEDURE: SPINE CERVICAL WITHOUT CONTRAS 09/29/2024 REASON FOR EXAM: 58-year-old male, seizure and fall. History of seizures, unmedicated for several years. TECHNIQUE: Cervical spine CT without contrast. Coronal and Sagittal reconstruction series were provided. One or more dose reduction techniques were used (e.g., Automated exposure control, adjustment of the mA and/or kV according to patient size, use of iterative reconstruction technique RADIATION DOSE SUMMARY: CTDlvol: 74 mGy DLP: 1600 mGycm COMPARISON: CT C-spine 11/03/2023. FINDINGS: Alignment: Normal cervical alignment. No traumatic listhesis. Vertebrae: No acute osseous fracture. The vertebral body heights are maintained. No aggressive osseous lesions. Soft Tissues: No prevertebral or subcutaneous hematoma. CT/Spine Cervical without Contras IMPRESSION: NO ACUTE CERVICAL FRACTURE Reading Location: [facility]
--- NOTE | 2024-09-29 20:15 | CT_ITS ---
EXAM: CT head without contrast. CLINICAL HISTORY: Closed head injury. COMPARISON: CT head without contrast dated 04/03/2024. TECHNIQUE: CT of the head was performed without IV contrast. Multiplanar reformats were obtained afterwards. FINDINGS: There is no intracranial hemorrhage, mass effect or midline shift. There are no abnormal extra-axial fluid collections present. The ventricles and sulci are within normal limits. Calvarium is intact. CT/Brain/Head without Contrast IMPRESSION: No acute intracranial hemorrhage, mass effect or midline shift. Reading Location: [id number]
[2024-09-29 20:30] LABS: Alcohol, Blood (Medical)-Serum < 10.1 mg/dL (<=10.0)
[2024-09-29 20:31] LABS: Lipase 35 U/L (13-75); Magnesium 1.5 mg/dL (1.5-2.2)
[2024-09-29 20:34] LABS: AST(SGOT) 90 U/L (<=37); Alanine Aminotransfer ALT/SGPT 48 U/L (<=46); Albumin, Serum 3.6 g/dL (3.5-5.0); Alkaline Phosphatase 174 U/L (40-129); Anion Gap 17 (5-15); BUN 22 mg/dL (4-19); BUN/Creat Ratio 13.2 RATIO (10-20); Bilirubin, Direct 0.87 mg/dL (0.00-0.30); Calcium,Total 8.8 mg/dL (7.6-11.0); Carbon Dioxide 25.8 mmol/L (21.0-32.0); Chloride 93 mmol/L (98-108); Creatinine, Serum 1.67 mg/dL (0.70-1.20); EST Glomerular Filtration Rate 47 (>60); Estimated Creatinine Clearance 52.03 ml/min (50-250); Glucose 148 mg/dL (70-99); Potassium 2.9 mmol/L (3.3-5.1); Protein, Total 6.6 g/dL (5.9-8.4); Sodium Level 136 mmol/L (133-145); Total Bilirubin 1.52 mg/dL (0.00-1.30)
[2024-09-29 21:00] VITALS: BP 104/61
[2024-09-29] MEDS: Potassium Chloride Oral Soln 20 MEQ/15 ML UDC 60 MEQ PO (21:44)
[2024-09-29 22:00] VITALS: BP 91/53; PULSE 76; RESP 12; O2SAT 98
[2024-09-29 22:16] LABS: Bacteria 0 SEEN /hpf (None Seen); Mucous, Urine 0 SEEN /hpf (<or=2+); White Blood Cells 0 SEEN /hpf (0-5)
[2024-09-29 22:21] LABS: Color, Urine Yellow (Yellow); Glucose, Dipstick Normal (Normal); Ketone-Dipstick Negative (Negative); Leukocyte Esterase-Dipstick 25 /ul (Negative); Nitrite-Dipstick Negative (Negative); Occult Blood-Urine 25 /ul (Negative); Protein-Dipstick 30 mg/dl (Negative); Urine Bilirubin Dipstick Negative (Negative); Urine Clarity Clear (Clear); Urine Urobilinogen Normal (Normal); Urine pH 6.5 (5.0 - 8.0)
[2024-09-29 22:28] LABS: Bedside Glucose 148 mg/dL (74-106)
[2024-09-29 22:30] LABS: Red Blood Cells-Urine 0 SEEN /hpf (0-5); Squamous Epithelial Cells - UA 0-5 SEEN /hpf (0-5)
[2024-09-29 22:39] VITALS: BP 90/45; PULSE 99; RESP 18; TEMP 37.1; O2SAT 100
[2024-09-29 22:42] LABS: Amphetamine Urine NEGATIVE (<1000 ng/mL); Barbiturate Urine NEGATIVE (< 200 ng/mL); Benzodiazepine Urine NEGATIVE (< 200 ng/mL); Buprenorphine Urine NEGATIVE (< 200 ng/mL); Cocaine Urine NEGATIVE (< 300 ng/mL); Fentanyl, Urine NEGATIVE; Methadone Urine NEGATIVE (< 300 ng/mL); Opiates Urine NEGATIVE (< 300 ng/mL); Oxycodone, Urine NEGATIVE (< 100 ng/mL); PCP Urine NEGATIVE (< 25 ng/mL); THC Urine NEGATIVE (< 50 ng/mL)
== END 2024-09-29 22:51 | disposition left against medical advice (07) ==
PROVIDERS: Emergency Provider Surgery; Visit Provider Surgery
DX: G40.89 Other seizures (principal); F10.139 Alcohol abuse with withdrawal, unspecified; E87.6 Hypokalemia; E87.8 Other disorders of electrolyte and fluid balance, not elsewhere classified; N17.9 Acute kidney failure, unspecified; E86.0 Dehydration; R74.8 Abnormal levels of other serum enzymes; S00.01XA Abrasion of scalp, initial encounter; W19.XXXA Unspecified fall, initial encounter; Y92.512 Supermarket, store or market as the place of occurrence of the external cause; D64.9 Anemia, unspecified; I10 Essential (primary) hypertension; F32.A Depression, unspecified; F41.9 Anxiety disorder, unspecified; Z53.29 Procedure and treatment not carried out because of patient's decision for other reasons; Z79.899 Other long term (current) drug therapy
CPT/HCPCS: 70450; 71045; 72125; 80048; 80076; 80307; 81001; 82077; 82962; 83690; 83735; 85025; 93005; 96360; 96361; 99285; A4216

== ENCOUNTER 2025-01-11 10:09 | Emergency (ER) | payer OTHER, SELFPAY ==
[2025-01-11 10:10] VITALS: BP 81/39; PULSE 97; RESP 20; TEMP 36.6; O2SAT 96; BMI 30.6
[2025-01-11 10:15] VITALS: BP 88/42; PULSE 59
[2025-01-11 10:16] VITALS: BP 83/33
== END 2025-01-11 12:05 | disposition left against medical advice (07) ==
PROVIDERS: Emergency Provider Emergency Medicine; Visit Provider Emergency Medicine
DX: S01.81XA Laceration without foreign body of other part of head, initial encounter (principal); G40.909 Epilepsy, unspecified, not intractable, without status epilepticus; W19.XXXA Unspecified fall, initial encounter; Z53.29 Procedure and treatment not carried out because of patient's decision for other reasons; I10 Essential (primary) hypertension; F41.9 Anxiety disorder, unspecified; F32.A Depression, unspecified; Z79.899 Other long term (current) drug therapy
CPT/HCPCS: 99283